=== PATIENT | male | born 1955 | race Caucasian/White ===

== ENCOUNTER 2019-11-07 16:07 | Outpatient (CLI) | payer OTHER, SELFPAY ==
[2019-11-07 16:58] LABS: Hemoglobin A1C 6.2 % (<5.7)
[2019-11-07 17:09] LABS: Alanine Aminotransferase 22 U/L (4-50); Albumin Level 3.9 g/dL (3.5-5.1); Alkaline Phosphatase 105 U/L (38-126); Aspartate Amino Transferase 22 U/L (17-59); Bilirubin,Total 1.9 mg/dL (0.2-1.3); Blood Urea Nitrogen 9 mg/dL (9-20); Calcium 8.5 mg/dL (8.4-10.2); Carbon Dioxide 34 mmol/L (22-30); Chloride 96 mmol/L (98-107); Cholesterol 153 mg/dL (0-200); Estimated Glomerular Filt Rate > 60; Glucose 100 mg/dL (75-110); HDL Direct 39 mg/dL; Potassium 3.4 mmol/L (3.4-5.0); Sodium 137 mmol/L (137-145); Triglycerides 83 mg/dL (<150)
[2019-11-07 17:20] LABS: LDL Cholesterol Direct 89 mg/dL
== END 2019-11-07 16:08 | disposition home or self-care (01) ==
LOC: ANHLAB 16:08
PROVIDERS: PCP Emergency Medicine; Visit Provider Emergency Medicine
DX: E10.65 Type 1 diabetes mellitus with hyperglycemia (principal); I10 Essential (primary) hypertension
CPT/HCPCS: 36415; 80053; 80061; 83036

== ENCOUNTER 2020-02-08 16:31 | Outpatient (CLI) | payer OTHER, SELFPAY ==
[2020-02-08 17:16] LABS: Hemoglobin A1C 6.7 % (<5.7)
[2020-02-08 17:20] LABS: Alanine Aminotransferase 22 U/L (4-50); Albumin Level 3.9 g/dL (3.5-5.1); Alkaline Phosphatase 100 U/L (38-126); Aspartate Amino Transferase 29 U/L (17-59); Bilirubin,Total 1.4 mg/dL (0.2-1.3); Blood Urea Nitrogen 12 mg/dL (9-20); Carbon Dioxide 32 mmol/L (22-30); Chloride 102 mmol/L (98-107); Cholesterol 179 mg/dL (0-200); Estimated Glomerular Filt Rate > 60; Glucose 98 mg/dL (75-110); HDL Direct 39 mg/dL; Potassium 3.3 mmol/L (3.4-5.0); Sodium 141 mmol/L (137-145); Triglycerides 104 mg/dL (<150)
[2020-02-08 17:31] LABS: LDL Cholesterol Direct 95 mg/dL
== END 2020-02-08 16:32 | disposition home or self-care (01) ==
PROVIDERS: PCP Emergency Medicine; Visit Provider Emergency Medicine
DX: E78.5 Hyperlipidemia, unspecified (principal); E11.9 Type 2 diabetes mellitus without complications
CPT/HCPCS: 36415; 80053; 80061; 83036

== ENCOUNTER 2020-05-17 09:27 | Outpatient (CLI) | payer SELFPAY ==
[2020-05-17 10:35] LABS: Hemoglobin A1C 6.5 % (<5.7)
[2020-05-17 10:46] LABS: Alanine Aminotransferase 18 U/L (4-50); Albumin Level 3.8 g/dL (3.5-5.1); Alkaline Phosphatase 94 U/L (38-126); Anion Gap 7.6 mmol/L (7-16); Aspartate Amino Transferase 21 U/L (17-59); Blood Urea Nitrogen 16 mg/dL (9-20); Calcium 8.4 mg/dL (8.4-10.2); Carbon Dioxide 33 mmol/L (22-30); Chloride 103 mmol/L (98-107); Estimated Glomerular Filt Rate > 60; Glucose 122 mg/dL (75-110); Potassium 3.6 mmol/L (3.4-5.0); Sodium 140 mmol/L (137-145)
[2020-05-17 11:14] LABS: Prostate Specific Antigen 0.3 ng/mL (< OR = 4.0)
== END 2020-05-17 09:28 | disposition home or self-care (01) ==
PROVIDERS: PCP Emergency Medicine; Visit Provider Emergency Medicine
DX: E11.9 Type 2 diabetes mellitus without complications (principal); E78.5 Hyperlipidemia, unspecified; Z12.5 Encounter for screening for malignant neoplasm of prostate
CPT/HCPCS: 36415; 80053; 83036; 84153

== ENCOUNTER 2021-07-17 06:55 | Outpatient (CLI) | payer MEDICARE, OTHER, SELFPAY ==
[2021-07-17 07:43] LABS: Alanine Aminotransferase 17 U/L (4-50); Albumin Level 4.1 g/dL (3.5-5.1); Alkaline Phosphatase 91 U/L (38-126); Anion Gap 7 mmol/L (8-16); Aspartate Amino Transferase 25 U/L (17-59); Bilirubin,Total 1.5 mg/dL (0.2-1.3); Blood Urea Nitrogen 15 mg/dL (9-20); Calcium 8.3 mg/dL (8.4-10.2); Carbon Dioxide 32 mmol/L (22-30); Chloride 102 mmol/L (98-107); Cholesterol 146 mg/dL (0-200); Estimated Glomerular Filt Rate > 60; Glucose 145 mg/dL (65-110); HDL Direct 35 mg/dL; Potassium 4.3 mmol/L (3.4-5.0); Sodium 141 mmol/L (137-145); Triglycerides 100 mg/dL (<150)
[2021-07-17 07:52] LABS: Hemoglobin A1C 8.3 % (<5.7)
[2021-07-17 07:53] LABS: LDL Cholesterol Direct 81 mg/dL
[2021-07-17 08:11] LABS: Prostate Specific Antigen 0.3 ng/mL (< OR = 4.0)
== END 2021-07-17 06:56 | disposition home or self-care (01) ==
PROVIDERS: PCP Emergency Medicine; Visit Provider Emergency Medicine
DX: Z12.5 Encounter for screening for malignant neoplasm of prostate (principal); E10.65 Type 1 diabetes mellitus with hyperglycemia; I10 Essential (primary) hypertension
CPT/HCPCS: 36415; 80053; 80061; 83036; 84153; G0103

== ENCOUNTER 2021-07-17 09:51 | Outpatient (CLI) | payer MEDICARE, OTHER, SELFPAY ==
--- NOTE | ~2021-07-17 | CT_ITS ---
EXAMINATION: CT lung screening DATE: 07/17/2021 10:10 INDICATION: Z87.891 - Personal history of nicotine dependence TECHNIQUE: Computed tomography (CT) of the chest was performed without intravenous contrast. Addition al 3D reconstructions utilizing coronal maximum intensity projection (MIP) were performed. Automated exposure control and iterative reconstruction technique were employed. The dose-length product was 42 7.29 mGy-cm. COMPARISON: None FINDINGS: Linear bands of discoid atelectasis/scarring in the bilateral lower lobes with some associated estela ectural distortion at the left lower lobe. Additional atelectasis along the periphery of the anteroin ferior inferomedial aspect of the right middle lobe. Mild emphysema. No other suspicious pulmonary no dules, pneumonia, pulmonary edema or pleural effusion. Heart size is normal. Minimal scattered athero sclerotic coronary artery calcification. No pericardial effusion. Thoracic aorta is normal in caliber . No pathologically enlarged thoracic lymphadenopathy. There is some eventration along the right kathy diaphragm. The visualized upper abdomen is unremarkable. Mild thoracic dextroscoliosis with mild to m oderate spondylosis. IMPRESSION: 1. Lung-RADS category 2: Benign appearance or behavior. Continue annual screening with noncontrast lo w-dose chest CT in 12 months. 2. Mild emphysema with atelectasis/scarring in the bilateral lower lung zones. Reviewed, dictated and finalized at location B. IMPRESSION: 1. Lung-RADS category 2: Benign appearance or behavior. Continue annual screeni ng with noncontrast low-dose chest CT in 12 months. 2. Mild emphysema with atelectasis/scarring in the bilateral lower lung zones.
== END 2021-07-17 09:52 | disposition home or self-care (01) ==
LOC: ANHIMG 09:55
PROVIDERS: PCP Emergency Medicine; Visit Provider Nurse Practitioner Family
DX: Z12.2 Encounter for screening for malignant neoplasm of respiratory organs (principal); Z87.891 Personal history of nicotine dependence
CPT/HCPCS: 36415; 71271; 80053; 80061; 83036; 84153; G0103

== ENCOUNTER 2021-10-23 07:04 | Outpatient (CLI) | payer MEDICARE, SELFPAY ==
[2021-10-23 08:38] LABS: Alanine Aminotransferase 15 U/L (4-50); Albumin Level 3.9 g/dL (3.5-5.1); Alkaline Phosphatase 105 U/L (38-126); Anion Gap 7 mmol/L (8-16); Aspartate Amino Transferase 20 U/L (17-59); Bilirubin,Total 0.9 mg/dL (0.2-1.3); Blood Urea Nitrogen 20 mg/dL (9-20); Calcium 8.5 mg/dL (8.4-10.2); Carbon Dioxide 32 mmol/L (22-30); Chloride 101 mmol/L (98-107); Cholesterol 174 mg/dL (0-200); Estimated Glomerular Filt Rate > 60; Glucose 185 mg/dL (65-110); HDL Direct 33 mg/dL; Sodium 140 mmol/L (137-145); Triglycerides 142 mg/dL (<150)
[2021-10-23 08:49] LABS: LDL Cholesterol Direct 91 mg/dL
[2021-10-23 08:56] LABS: Hemoglobin A1C 10.3 % (<5.7)
[2021-10-23 10:15] LABS: Creatinine Urine 103.2 mg/dL
[2021-10-23 10:20] LABS: MALB Creatinine Ratio 20.2 mg/g (0-30); Microalbumin Urine Random 20.8 mg/L (0-16.7)
== END 2021-10-23 07:05 | disposition home or self-care (01) ==
LOC: ANHLAB 07:08
PROVIDERS: PCP Emergency Medicine; Visit Provider Emergency Medicine
DX: E10.65 Type 1 diabetes mellitus with hyperglycemia (principal); I10 Essential (primary) hypertension
CPT/HCPCS: 36415; 80053; 80061; 82043; 83036

== ENCOUNTER 2021-12-27 08:06 | Outpatient (CLI) | payer MEDICARE, SELFPAY ==
[2021-12-27 08:40] VITALS: PULSE 66; O2SAT 93
[2021-12-27 08:44] VITALS: PULSE 94; O2SAT 85
[2021-12-27 08:45] VITALS: PULSE 89; O2SAT 92
[2021-12-27 08:55] VITALS: PULSE 70; O2SAT 93
--- NOTE | 2021-12-27 11:28 | HOMEO2EVAL ---
Evaluation was performed at [facility] Home Oxygen Evaluation RC: Home Oxygen (O2) Evaluation Start: 12/27/21 11:21 Freq: Status: Active Protocol: RPE Activity Type Activity Date Activity User E-Sign Co-Sign Detail Recorded Client Recorded Date Recorded By Document 12/27/21 08:40 PK [email or web address] 12/27/21 11:25 PK Document 12/27/21 08:44 PK [email or web address] 12/27/21 11:25 PK Document 12/27/21 08:45 PK [email or web address] 12/27/21 11:25 [facility] Document 12/27/21 08:55 PK [email or web address] 12/27/21 11:25 [facility] 12/27/21 12/27/21 12/27/21 08:40 08:44 08:45 Home O2 Evaluation Test Phase Resting Exercise Exercise Oxygen Delivery Room Air Room Air Nasal Cannula Oxygen Flow Rate (L/min) 1 Pulse Oximetry (90-100 %) 93 85 L 92 Pulse Rate (60-100 beats/min) 66 94 89 Ambulation Distance (feet) 300 Ambulation Distance (meters) 91.43 Home Oxygen Evaluation Comments Treatment Charges O2 Evaluation - Outpatient 12/27/21 08:55 Home O2 Evaluation Test Phase Resting Oxygen Delivery Room Air Oxygen Flow Rate (L/min) Pulse Oximetry (90-100 %) 93 Pulse Rate (60-100 beats/min) 70 Ambulation Distance (feet) Ambulation Distance (meters) Home Oxygen Evaluation Comments PATIENT REQUIRES 1 LITER WITH ACTIVITY AND NO OXYGEN AT REST . Treatment Charges
--- NOTE | 2021-12-27 11:35 | HOMEO2EVAL ---
Evaluation was performed at [facility] Home Oxygen Evaluation RC: Home Oxygen (O2) Evaluation Start: 12/27/21 11:21 Freq: Status: Active Protocol: RPE Activity Type Activity Date Activity User E-Sign Co-Sign Detail Recorded Client Recorded Date Recorded By Document 12/27/21 08:40 PK [email or web address] 12/27/21 11:25 PK Document 12/27/21 08:44 PK [email or web address] 12/27/21 11:25 PK Document 12/27/21 08:45 PK [email or web address] 12/27/21 11:25 [facility] Document 12/27/21 08:55 PK [email or web address] 12/27/21 11:25 [facility] 12/27/21 12/27/21 12/27/21 08:40 08:44 08:45 Home O2 Evaluation Test Phase Resting Exercise Exercise Oxygen Delivery Room Air Room Air Nasal Cannula Oxygen Flow Rate (L/min) 1 Pulse Oximetry (90-100 %) 93 85 L 92 Pulse Rate (60-100 beats/min) 66 94 89 Ambulation Distance (feet) 300 Ambulation Distance (meters) 91.43 Home Oxygen Evaluation Comments Treatment Charges O2 Evaluation - Outpatient 12/27/21 08:55 Home O2 Evaluation Test Phase Resting Oxygen Delivery Room Air Oxygen Flow Rate (L/min) Pulse Oximetry (90-100 %) 93 Pulse Rate (60-100 beats/min) 70 Ambulation Distance (feet) Ambulation Distance (meters) Home Oxygen Evaluation Comments PATIENT REQUIRES 1 LITER WITH ACTIVITY AND NO OXYGEN AT REST . Treatment Charges
== END 2021-12-27 08:07 | disposition home or self-care (01) ==
LOC: ANHPFT 08:08
PROVIDERS: PCP Emergency Medicine; Visit Provider Nurse Practitioner Family
DX: R06.02 Shortness of breath (principal)
CPT/HCPCS: 94618

== ENCOUNTER 2022-01-07 06:39 | Outpatient (CLI) | payer MEDICARE, SELFPAY ==
[2022-01-07 07:37] LABS: Alanine Aminotransferase 18 U/L (4-50); Alkaline Phosphatase 87 U/L (38-126); Anion Gap 8 mmol/L (8-16); Aspartate Amino Transferase 23 U/L (17-59); Bilirubin,Total 1.2 mg/dL (0.2-1.3); Blood Urea Nitrogen 14 mg/dL (9-20); Calcium 8.3 mg/dL (8.4-10.2); Carbon Dioxide 28 mmol/L (22-30); Chloride 104 mmol/L (98-107); Cholesterol 148 mg/dL (0-200); Estimated Glomerular Filt Rate > 60; Glucose 115 mg/dL (65-110); HDL Direct 33 mg/dL; Potassium 3.6 mmol/L (3.4-5.0); Sodium 140 mmol/L (137-145); Triglycerides 106 mg/dL (<150)
[2022-01-07 07:39] LABS: Hemoglobin A1C 7.1 % (<5.7)
[2022-01-07 07:47] LABS: LDL Cholesterol Direct 69 mg/dL
[2022-01-07 07:59] LABS: MALB Creatinine Ratio 24.4 mg/g (0-30); Microalbumin Urine Random 28.6 mg/L (0-16.7)
== END 2022-01-07 06:40 | disposition home or self-care (01) ==
LOC: ANHLAB 06:43
PROVIDERS: PCP Emergency Medicine; Visit Provider Emergency Medicine
DX: E10.65 Type 1 diabetes mellitus with hyperglycemia (principal); I10 Essential (primary) hypertension
CPT/HCPCS: 36415; 80053; 80061; 82043; 83036

== ENCOUNTER 2022-02-13 00:32 | Day surgery (SDC) | payer MEDICARE, SELFPAY ==
[2022-02-06 10:47] VITALS: BMI 38.4
[2022-02-13 08:44] VITALS: BP 156/68; PULSE 63; RESP 20; TEMP 36.4; O2SAT 95
--- NOTE | 2022-02-13 08:48 | WPDGICN ---
Assessment and Plan Assessment and plan (1) History of colon polyps: Code(s): Z86.010 - Personal history of colonic polyps Status: Acute Assessment and Plan: Patient has a prior history of colon polyps. For this reason surveillance colonoscopy is advised now and that several year intervals in the future. Further recommendations will be given after colonoscopy. GI Consult Note Consult date/time: 02/13/22 08:48 HPI: Sundeep Orellana is a 66 year old male Presents for screening colonoscopy. Patient has a history of polyps in the colon in 2019. And 2016. Patient presents today for follow-up screening colonoscopy. He states his weight appetite and bowel movements are normal. On 1 occasion several weeks ago to notice bright red blood per rectum with wiping. His bowel habits in general a been very normal with no abdominal or rectal pain. Family history is noncontributory. Patient presents today for neoplasia screening. Review of Systems Review of Systems: All systems reviewed & are unremarkable except as noted in HPI and below PMFSH Past Medical History Medical History COPD (chronic obstructive pulmonary disease) COPD (chronic obstructive pulmonary disease) Dyspnea on exertion Hyperglycemia due to type 1 diabetes mellitus Hypertension Surgical History Surgical History H/O hernia repair History of cataract surgery Family History Family History Mother Hypertension Family history of congestive heart failure Other Cerebrovascular accident Social History Social History Smoking status: Former smoker Tobacco type: cigarettes Smoking end date: 10/12/19 Alcohol intake: former Substance use: former Substance use type: former substance user and marijuana Living arrangements: alone Spiritual care concerns: No Meds Home Medications and Allergies Home Medications Medication Instructions Recorded Confirmed Type albuterol sulfate 90 mcg/actuation 2 puff INHALATION Q4-6H PRN #8.5 gm 06/26/21 02/06/22 Rx aerosol inhaler furosemide 20 mg tablet 20 mg PO DAILY #90 tablet 09/03/21 02/06/22 Rx losartan 100 mg tablet 100 mg PO DAILY #90 tablet 09/03/21 02/06/22 Rx potassium chloride 10 mEq 10 meq PO DAILY #90 tablet 09/03/21 02/06/22 Rx tablet,extended release(part/cryst) albuterol sulfate 2.5 mg INHALATION QID PRN 180 Days 09/25/21 02/06/22 Rx #2160 ml budesonide 160 mcg-glycopyr 9 2 inh INHALATION QAM AND QPM #10.7 09/25/21 02/06/22 Rx mcg-formot 4.8 mcg/actuation HFA g inhaler amlodipine 10 mg tablet 10 mg PO DAILY #90 tablet 10/15/21 02/06/22 Rx metformin 1,000 mg tablet 1,000 mg PO BID #180 tablet 12/09/21 02/06/22 Rx Allergies Allergy/AdvReac Type Severity Reaction Status Date / Time No Known Allergies Allergy Verified 02/13/22 08:42 Vital Signs Vital Signs - 24 hr 02/13/22 08:44 Temperature 97.5 F L Pulse Rate 63 Respiratory Rate 20 Blood Pressure 156/68 H Pulse Oximetry 95 Exam Narrative: Physical exam reveals patient to be alert. Vital signs stable. HEENT exam is unremarkable. Patient is anicteric. Lungs are clear to auscultation and percussion. Heart is without murmur or extra sounds. Abdominal exam bowel sounds are present soft nontender with no organomegaly. Digital external rectal exam is normal.
[2022-02-13] MEDS: LACTATED RINGERS 1,000 ML 150 ML IV CONT (08:55)
--- NOTE | 2022-02-13 08:57 | WPDANESEPPF ---
Anes - Initial Pre Proc Eval Procedure: Operation Date: 02/13/22 10:00 Proposed Procedures p Screening Colonoscopy - Cornell Raymond MD Date/Time: 02/13/22 08:57 Surgeon: Cornell Raymond MD Pre Op Diagnosis: hx of colon polyps Patient Data Age: 66 Gender: M Height: 1.8 m Weight: 123.2 kg Last Vital Signs Temp 36.4 C L 02/13/22 08:44 Pulse 63 02/13/22 08:44 Resp 20 02/13/22 08:44 BP 156/68 H 02/13/22 08:44 Pulse Ox 95 02/13/22 08:44 Allergies Allergy/AdvReac Type Severity Reaction Status Date / Time No Known Allergies Allergy Verified 02/13/22 08:42 Home Medications Medication Instructions Recorded Confirmed Type albuterol sulfate 90 mcg/actuation 2 puff INHALATION Q4-6H PRN #8.5 gm 06/26/21 02/06/22 Rx aerosol inhaler furosemide 20 mg tablet 20 mg PO DAILY #90 tablet 09/03/21 02/06/22 Rx losartan 100 mg tablet 100 mg PO DAILY #90 tablet 09/03/21 02/06/22 Rx potassium chloride 10 mEq 10 meq PO DAILY #90 tablet 09/03/21 02/06/22 Rx tablet,extended release(part/cryst) albuterol sulfate 2.5 mg INHALATION QID PRN 180 Days 09/25/21 02/06/22 Rx #2160 ml budesonide 160 mcg-glycopyr 9 2 inh INHALATION QAM AND QPM #10.7 09/25/21 02/06/22 Rx mcg-formot 4.8 mcg/actuation HFA g inhaler amlodipine 10 mg tablet 10 mg PO DAILY #90 tablet 10/15/21 02/06/22 Rx metformin 1,000 mg tablet 1,000 mg PO BID #180 tablet 12/09/21 02/06/22 Rx Patient hx anesthesia problems: none Family hx anesthesia problems: other (sz) Results Review: All pre-operative results and documents have been reviewed as part of the pre-operative evaluation. [facility] Past Medical History Medical History COPD (chronic obstructive pulmonary disease) COPD (chronic obstructive pulmonary disease) Diabetes mellitus Dyspnea on exertion History of tobacco abuse Hyperglycemia due to type 1 diabetes mellitus Hypertension Marijuana smoker PEACE (obstructive sleep apnea) Surgical History Surgical History H/O hernia repair History of cataract surgery Family History Family History Mother Hypertension Family history of congestive heart failure Other Cerebrovascular accident Social History Social History Smoking status: Former smoker Tobacco type: cigarettes Smoking end date: 10/12/19 Alcohol intake: former Substance use: former Substance use type: former substance user and marijuana Living arrangements: alone Spiritual care concerns: No Anes - Eval Final PreProcedure Day of Procedure 02/13/22 08:57 Patient weight: obese Heart: regular rate and rhythm Lungs: decreased breath sounds Airway: Mallampati scale class II Neurological: alert and oriented Last oral intake: >/= 8 hours ASA classification: III Emergent: no Anesthetic plan: proceed Anesthesia type and monitoring: general GIVS and standard monitoring Results Review: All pre-operative results and documents have been reviewed as part of the pre-operative evaluation. Informed Consent: The patient's anesthetic plan and its attendant risks and benefits were discussed with the patient/family/POA. Questions were solicited and answers provided to the satisfaction of the patient/family/POA.
[2022-02-13 09:45] VITALS: BP 96/57; PULSE 61; RESP 25; O2SAT 92
[2022-02-13 09:55] VITALS: BP 110/57; PULSE 54; RESP 19; O2SAT 93
[2022-02-13 10:05] VITALS: BP 134/67; PULSE 54; RESP 18; O2SAT 93
[2022-02-13 11:29] LABS: Glucose Point of Care 89 mg/dl (65-105)
== END 2022-02-13 10:15 | disposition home or self-care (01) ==
PROVIDERS: PCP Emergency Medicine; Visit Provider Internal Medicine Gastroenterology
PROC: 0DJD8ZZ Inspection of Lower Intestinal Tract, Via Natural or Artificial Opening Endoscopic (ICD-10-PCS; CPT 45378; principal; 2022-02-13 10:00)
DX: Z12.11 Encounter for screening for malignant neoplasm of colon (principal); D12.2 Benign neoplasm of ascending colon; D12.5 Benign neoplasm of sigmoid colon; D12.3 Benign neoplasm of transverse colon; K63.5 Polyp of colon; K57.30 Diverticulosis of large intestine without perforation or abscess without bleeding; K64.8 Other hemorrhoids; J44.9 Chronic obstructive pulmonary disease, unspecified; I10 Essential (primary) hypertension; E11.9 Type 2 diabetes mellitus without complications; Z87.891 Personal history of nicotine dependence
CPT/HCPCS: 45385; 82948; 88305; J2704; J7120

== ENCOUNTER 2022-03-26 09:05 | Outpatient (CLI) | payer MEDICARE, SELFPAY ==
[2022-03-26 10:08] LABS: Alanine Aminotransferase 14 U/L (6-50); Albumin Level 3.9 g/dL (3.5-5.1); Alkaline Phosphatase 96 U/L (38-126); Anion Gap 7 mmol/L (8-16); Aspartate Amino Transferase 19 U/L (17-59); Bilirubin,Total 0.8 mg/dL (0.2-1.3); Blood Urea Nitrogen 17 mg/dL (9-20); Calcium 8.4 mg/dL (8.4-10.2); Carbon Dioxide 29 mmol/L (22-30); Chloride 103 mmol/L (98-107); Cholesterol 155 mg/dL (0-200); Estimated Glomerular Filt Rate > 60; Glucose 107 mg/dL (65-110); HDL Direct 34 mg/dL; Potassium 3.9 mmol/L (3.4-5.0); Sodium 139 mmol/L (137-145); Triglycerides 141 mg/dL (<150)
[2022-03-26 10:19] LABS: LDL Cholesterol Direct 76 mg/dL
[2022-03-26 10:38] LABS: Hemoglobin A1C 6.2 % (<5.7)
== END 2022-03-26 09:06 | disposition home or self-care (01) ==
LOC: ANHLAB 09:08
PROVIDERS: PCP Emergency Medicine; Visit Provider Emergency Medicine
DX: E11.9 Type 2 diabetes mellitus without complications (principal); I10 Essential (primary) hypertension
CPT/HCPCS: 36415; 80053; 80061; 83036

== ENCOUNTER 2022-07-18 07:41 | Outpatient (CLI) | payer MEDICARE, SELFPAY ==
--- NOTE | ~2022-07-18 | CT_ITS ---
EXAMINATION:CT lung screening DATE: 07/18/2022 08:05 INDICATION: Personal history of tobacco dependence. Smoker who quit 2 years ago with 30 pack year his tory. TECHNIQUE: Computed tomography (CT) of the chest was performed without intravenous contrast. Automate d exposure control and iterative reconstruction technique were employed. The dose-length product (DLP ) was 354.67 mGy-cm. COMPARISON: Chest CT 07/17/2021 FINDINGS: There is mild emphysema. There is a stable 3 mm nodule in right upper lobe. There is stable mild scarring at the lung apices. There is mild atelectasis in the inferior lungs. Calcified bilater al lung nodules and calcified left hilar lymph nodes are consistent with old granulomatous disease. T here is a 2 mm nodule in left upper lobe. No pleural effusion. The heart size is normal. No pericardi al effusion. There is thoracic dextroscoliosis and mild spondylosis. There is mild chronic anterior w edging of multiple vertebral bodies. IMPRESSION: 1. Lung-RADS category 2: Benign appearance or behavior. Continue annual screening with noncontrast lo w-dose chest CT in 12 months. Reviewed, dictated and finalized at location D. IMPRESSION: 1. Lung-RADS category 2: Benign appearance or behavior. Continue annual screeni ng with noncontrast low-dose chest CT in 12 months.
== END 2022-07-18 07:42 | disposition home or self-care (01) ==
PROVIDERS: PCP Emergency Medicine; Visit Provider Nurse Practitioner Family
DX: Z12.2 Encounter for screening for malignant neoplasm of respiratory organs (principal); Z87.891 Personal history of nicotine dependence
CPT/HCPCS: 71271

== ENCOUNTER 2022-07-30 13:53 | Outpatient (CLI) | payer MEDICARE, SELFPAY ==
[2022-07-30 14:34] LABS: Alanine Aminotransferase 18 U/L (6-50); Albumin Level 4.1 g/dL (3.5-5.1); Alkaline Phosphatase 84 U/L (38-126); Anion Gap 9 mmol/L (8-16); Aspartate Amino Transferase 18 U/L (17-59); Bilirubin,Total 0.5 mg/dL (0.2-1.3); Blood Urea Nitrogen 17 mg/dL (9-20); Calcium 8.3 mg/dL (8.4-10.2); Carbon Dioxide 30 mmol/L (22-30); Chloride 101 mmol/L (98-107); Cholesterol 157 mg/dL (0-200); Estimated Glomerular Filt Rate > 60; Glucose 133 mg/dL (65-110); HDL Direct 37 mg/dL; Potassium 3.9 mmol/L (3.4-5.0); Sodium 140 mmol/L (137-145); Triglycerides 172 mg/dL (<150)
[2022-07-30 14:45] LABS: LDL Cholesterol Direct 77 mg/dL
== END 2022-07-30 13:54 | disposition home or self-care (01) ==
LOC: ANHLAB 13:53
PROVIDERS: PCP Emergency Medicine; Visit Provider Emergency Medicine
DX: I10 Essential (primary) hypertension (principal)
CPT/HCPCS: 36415; 80053; 80061

== ENCOUNTER 2022-08-15 09:51 | Outpatient (CLI) | payer MEDICARE, SELFPAY ==
[2022-08-15 11:13] LABS: Prostate Specific Antigen 0.3 ng/mL (< OR = 4.0)
[2022-08-15 11:36] LABS: Hemoglobin A1C 6.7 % (<5.7)
== END 2022-08-15 09:52 | disposition home or self-care (01) ==
PROVIDERS: PCP Emergency Medicine; Visit Provider Emergency Medicine
DX: E11.9 Type 2 diabetes mellitus without complications (principal); I10 Essential (primary) hypertension; Z12.5 Encounter for screening for malignant neoplasm of prostate
CPT/HCPCS: 36415; 83036; 84153; G0103

== ENCOUNTER 2022-10-15 08:06 | Outpatient (CLI) | payer MEDICARE, SELFPAY ==
--- NOTE | ~2022-10-15 | NM_ITS ---
EXAMINATION: NM luisito stress w perfusion DATE: 10/15/2022 12:50 INDICATION: Dyspnea. Abnormal electrocardiogram. TECHNIQUE: Rest images were obtained following intravenous administration of 10 mCi Tc99m tetrofosmin (Myoview). The patient was infused intravenously with Lexiscan (regadenoson). Then, 32.1 mCi Tc99m t etrofosmin (Myoview) was administered intravenously, and stress images were obtained. Data was recons tructed into short axis and horizontal and vertical long axis SPECT images. Gated SPECT images were a lso obtained. COMPARISON: Myocardial perfusion imaging 06/14/2019, chest CT 07/18/22 FINDINGS: There is a large, mild, fixed perfusion defect involving left ventricular apex, the apical segments, and inferior wall, consistent with infarct. No reversible component to suggest ischemia. Th ere is no segmental wall motion abnormality. Left ventricular ejection fraction measures 70%. IMPRESSION: 1. 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 2. Normal left ventricular ejection fraction measuring 70%. Reviewed, dictated and finalized at location A. DESK SUPPORT IMPRESSION: 1. Large area of mild infarct involving left ventricle apex, the apical segment s, and inferior wall. 2. Normal left ventricular ejection fraction measuring 70%.
--- NOTE | 2022-10-15 08:26 | EST_ITS ---
Patient Info Name: Sundeep Orellana Age: 67 years : 1955 Gender: Male Ht: 72 in Wt: 290 lbs BSA: 2.64 m2 HR: 53 bpm BP: 150 / 78 mmHg Heart Rhythm: Sinus Rhythm Exam Date: 10/15/2022 9:17 AM Exam Location: [facility] Stress Patient Status: Outpatient Admit Date: 10/15/2022 Staff Ordering Physician: Harvinder Gilbert APRN Attending Provider: Harvinder Gilbert APRN Exercise Technologist: Angelina Clark CT Exercise Physician: Orlando Ivy DO Exam Type: CA stress luisito w NM Study Info Indications R06.00 - Dyspnea, unspecified A regadenoson stress test was performed. Summary 1. 1. Negative lexiscan stress test for ischemic ST changes by ECG criteria. 2. 2. Baseline hypertension. 3. 3. Nuclear scan to follow and will be reported separately. Please correlate with it. 4. 4. Patient informed of the above results. Protocol: Lexiscan Stress ECG Details Stage: REST Duration (min): 1 min : 29 sec HR (bpm): 55 SBP (mmHg): 150 DBP (mmHg): 78 Stage: REST Duration (min): 4 min : 49 sec HR (bpm): 54 SBP (mmHg): 150 DBP (mmHg): 78 Stage: STAGE 1 Duration (min): 0 min : 59 sec HR (bpm): 77 SBP (mmHg): 150 DBP (mmHg): 78 Stage: RECOVERY Duration (min): 1 min : 0 sec HR (bpm): 72 SBP (mmHg): 173 DBP (mmHg): 76 Stage: RECOVERY Duration (min): 2 min : 0 sec HR (bpm): 71 SBP (mmHg): 173 DBP (mmHg): 76 Stage: RECOVERY Duration (min): 3 min : 0 sec HR (bpm): 66 SBP (mmHg): 173 DBP (mmHg): 76 Stage: RECOVERY Duration (min): 3 min : 32 sec HR (bpm): 67 SBP (mmHg): 162 DBP (mmHg): 75 Rest HR: 54 bpm Peak HR: 77 bpm Rest Sys BP: 150 mmHg Peak Sys BP: 173 mmHg Max Pred HR: 154 bpm % Max Pred HR: 50 % Target HR: 131 bpm Max RPP: 13,321 bpm*mmHg Termination Reason: Completed protocol Cardiac Symptoms: Shortness of breath Total Time: 1 min : 0 sec Rest Faith BP: 78 mmHg Peak Faith BP: 76 mmHg Total Dose: 0.4 mg Resting ECG Sinus rhythm. Stress ECG No ST changes. Arrhythmias None. Report Signatures
== END 2022-10-15 08:07 | disposition home or self-care (01) ==
PROVIDERS: PCP Emergency Medicine; Visit Provider Nurse Practitioner Family
DX: R06.09 Other forms of dyspnea (principal)
CPT/HCPCS: 78452; 93017; A9502; J2785

== ENCOUNTER 2022-10-16 08:08 | Outpatient (CLI) | payer MEDICARE, SELFPAY ==
[2022-10-16 08:30] VITALS: PULSE 63; O2SAT 94
[2022-10-16 08:33] VITALS: PULSE 95; O2SAT 87
[2022-10-16 08:34] VITALS: O2SAT 88
[2022-10-16 08:35] VITALS: PULSE 98; O2SAT 93
[2022-10-16 08:43] VITALS: PULSE 72; O2SAT 93
--- NOTE | 2022-10-16 08:45 | PCRCNOTE ---
Home O2 evaluation faxed to doctors office. Pt requesting portable O2 concentrator. DME company is [employer]
--- NOTE | 2022-10-16 08:48 | HOMEO2EVAL ---
Evaluation was performed at [facility] Home Oxygen Evaluation RC: Home Oxygen (O2) Evaluation Start: 10/16/22 08:39 Freq: Status: Active Protocol: RPE Activity Type Activity Date Activity User E-sign Co-sign Detail Recorded Client Recorded Date Recorded By Document 10/16/22 08:30 YORDY [email or web address] 10/16/22 08:44 YORDY Document 10/16/22 08:33 YORDY [email or web address] 10/16/22 08:44 YORDY Document 10/16/22 08:34 YORDY [email or web address] 10/16/22 08:44 YORDY Document 10/16/22 08:35 YORDY [email or web address] 10/16/22 08:44 YORDY Document 10/16/22 08:43 YORDY [email or web address] 10/16/22 08:44 YORDY 10/16/22 10/16/22 10/16/22 08:30 08:33 08:34 Home O2 Evaluation [Oxygen] -Test Phase Resting Exercise Exercise -Oxygen Delivery Room Air Room Air Nasal Cannula -Oxygen Flow Rate (L/min) 1 [Pulse Oximetry] -Pulse Oximetry (90-100 %) 94 87 L 88 L [Pulse Rate] -Pulse Rate (60-100 beats/min) 63 95 [Exercise] -Ambulation Distance (feet) -Ambulation Distance (meters) [Comments] -Home Oxygen Evaluation Comments [Charges] -Treatment Charges O2 Evaluation - Outpatient 10/16/22 10/16/22 08:35 08:43 Home O2 Evaluation [Oxygen] -Test Phase Exercise Resting -Oxygen Delivery Nasal Cannula Room Air -Oxygen Flow Rate (L/min) 2 [Pulse Oximetry] -Pulse Oximetry (90-100 %) 93 93 [Pulse Rate] -Pulse Rate (60-100 beats/min) 98 72 [Exercise] -Ambulation Distance (feet) 500 -Ambulation Distance (meters) 152.39 [Comments] -Home Oxygen Evaluation Comments Patient requires 2 liters O2 with ambulation [Charges] -Treatment Charges
== END 2022-10-16 08:09 | disposition home or self-care (01) ==
PROVIDERS: PCP Emergency Medicine; Visit Provider Nurse Practitioner Family
DX: R06.02 Shortness of breath (principal); Z99.81 Dependence on supplemental oxygen
CPT/HCPCS: 94618

== ENCOUNTER 2022-11-11 00:41 | Day surgery (SDC) | payer MEDICARE, SELFPAY ==
[2022-11-10 13:50] VITALS: BMI 40.0
[2022-11-11] VITALS (11 sets, daily range): BP systolic 142–162; BP diastolic 61–84; PULSE 57–68; RESP 14–19; TEMP 36.6–37.3; O2SAT 94–98; BMI 38.6
[2022-11-11 07:42] LABS: Basophils Absolute Auto 0.1 K/mm3 (0.0-0.1); Basophils Percent Auto 0.7 % (0.2-1.2); Eosinophils Absolute Auto 0.3 K/mm3 (0-0.3); Eosinophils Percent Auto 2.9 % (0-4.4); Hematocrit 41.5 % (42.0-52.0); Immature Granulocyte Absolute 0.18 K/mm3 (0.00-0.031); Immature Granulocyte Percent A 1.8 % (0-0.5); Lymphocytes Absolute Auto 1.67 K/mm3 (0.9-3.2); Mean Corpuscular HGB Conc 33.7 g/dl (32-36); Mean Corpuscular Hemoglobin 30.9 pg (26-34); Mean Corpuscular Volume 91.6 fl (80-100); Monocytes Absolute Auto 0.6 K/mm3 (0.1-0.6); Monocytes Percent Auto 6.3 % (2.6-8.5); Neutrophils Percent Auto 71.3 % (45.5-73.1); Platelet Count Result 222 k/mm3 (150-375); Red Blood Count 4.53 M/mm3 (4.6-6.20); Red Cell Distribution Width 13.2 % (11.5-14.5); White Blood Count 9.8 K/mm3 (4.5-10.0)
[2022-11-11 07:52] LABS: Anion Gap 6 mmol/L (8-16); Blood Urea Nitrogen 23 mg/dL (9-20); Calcium 8.3 mg/dL (8.4-10.2); Carbon Dioxide 32 mmol/L (22-30); Chloride 103 mmol/L (98-107); Estimated CRCL calculation 110 ml/min; Estimated Glomerular Filt Rate > 60; Glucose 120 mg/dL (65-110); Potassium 3.9 mmol/L (3.4-5.0); Sodium 141 mmol/L (137-145)
--- NOTE | 2022-11-11 08:47 | WPDHPUPDATE1 ---
History and Physical Update Update Date/Time: 11/11/22 08:47 History and Physical has been reviewed, including an updated exam of the patient. There are NO changes in the patient's condition. Risks, benefits, and alternatives have been discussed and questions answered. Patient agrees to proceed with procedure.
--- NOTE | 2022-11-11 08:47 | WPDMODSED ---
Moderate Sedation Note-Pt Data Patient Data Diagnosis: Angina in the setting of abnormal stress test Present Complaint: Angina in the setting of abnormal stress test Procedure to be performed/Plan: Coronary angiography, LHC, +/- PCI Allergies Allergy/AdvReac Type Severity Reaction Status Date / Time No Known Allergies Allergy Verified 11/11/22 07:23 Home Medications Medication Instructions Recorded Confirmed Type budesonide 160 mcg-glycopyr 9 2 inh inhalation QAM AND QPM #10.7 09/25/21 11/10/22 Rx mcg-formot 4.8 mcg/actuation HFA grams inhaler ([employer]) metformin 1,000 mg tablet 1,000 mg PO BID #180 tabs 12/09/21 11/10/22 Rx losartan 100 mg tablet 100 mg PO DAILY #90 tabs 05/30/22 11/10/22 Rx amlodipine 10 mg tablet 10 mg PO DAILY #90 tabs 07/07/22 11/10/22 Rx temazepam 15 mg capsule 15 mg PO QHS PRN sleep #30 caps 08/06/22 11/10/22 Rx albuterol sulfate 2.5 mg/3 mL 2.5 mg (3 mL) inhalation QID PRN 09/19/22 11/10/22 Rx (0.083 %) solution for nebulization shortness of breath or wheezing 90 days #1,080 mL albuterol sulfate 90 mcg/actuation 2 puff inhalation Q4-6H PRN 09/19/22 11/10/22 Rx aerosol inhaler ([employer]Air HFA) shortness of breath or wheezing #8.5 grams aspirin 81 mg tablet,delayed 81 mg PO DAILY 10/30/22 11/10/22 History release furosemide 20 mg tablet 40 mg PO DAILY #90 tabs 10/30/22 11/10/22 Rx potassium chloride 10 mEq 20 meq PO DAILY #90 tabs 10/30/22 11/10/22 Rx tablet,extended release(part/cryst) Current Medications: Active Medications Sodium Chloride (Normal Saline Iv) 500 mls @ 100 mls/hr IV CONT .Q5H KARLIE Sedation/Anesthesia: No previous sedation/anesthesia problems (including family history). [facility] Past Medical History Medical History COPD (chronic obstructive pulmonary disease) COPD (chronic obstructive pulmonary disease) Diabetes mellitus Dyspnea on exertion History of tobacco abuse Hyperglycemia due to type 1 diabetes mellitus Hypertension Marijuana smoker PEACE (obstructive sleep apnea) Surgical History Surgical History H/O hernia repair History of cataract surgery Family History Family History Mother Hypertension Family history of congestive heart failure Other Cerebrovascular accident Social History Social History Smoking packs per day: 1.5 Smoking cigarettes per day: 30.0 Smoking status: Former smoker Tobacco type: cigarettes Smoking end date: 10/12/19 Alcohol intake: former Substance use: current Substance use type: marijuana Other substance usage details: quit smoking 6 months ago, takes edibles Lack of Transportation: No Lack of Food: Sometimes True Current Housing: I Have Housing Concerned About Future Housing: No Difficulty Paying Gas/Electric Bills: No Difficulty Paying for Meds: No Currently Unemployed: No Education: High School Diploma/GED Difficulty w/ Childcare or Family Care: No Living arrangements: alone Spiritual care concerns: No Mod Sed Physical Exam Physical Exam Pre Procedural Exam: Normal: Appearance, Lungs, Heart Rate, Heart Rhythm, Neuro Exam, Abdomen, Extremities and Skin Hours since solid foods: 10 Hours since liquid intake: 8 Mallampati Classification: class III Internal Medicine - PN: Obj Da Vital Signs Vital Signs: Vital Signs - 24 hr 11/11/22 07:25 Temperature 37.3 C Pulse Rate 68 Respiratory Rate 14 Blood Pressure 158/73 H Pulse Oximetry 94 Oxygen Delivery Room Air Meds/Results Medications: Active Medications Generic Name Dose Route Start Last Admin Trade Name Freq PRN Reason Stop Dose Admin Sodium Chloride 500 mls @ 100 mls/hr 11/11/22 07:00 Normal Saline Iv IV CONT .Q5H [facility] 11/11/22 07:21
--- NOTE | 2022-11-11 08:48 | WPDCARDPROC ---
Cardiac Cath Procedure Note Date of procedure:: 11/11/22 Performing physician:: CATHETERIZATION LABORATORY REPORT Procedure Date: 11/11/2022 Lighting Adviser: Luisito Parker M.D., [facility]? Referring Physician: Dr. Ivy ? Anesthesia: Versed and Fentanyl were ordered and given in my presence at 08:52, procedure ended at 09:18. Supervision of nurse monitored moderate sedation with Versed and Fentanyl was provided for 26 minutes. Total of Versed 2 mg and Fentanyl 50 mcg were administered by the Chief Accounting Officer RN Jennifer Tinoco. Pre-op Diagnosis: Coronary artery disease Post-op Diagnosis: Non-obstructive coronary arteries Left ventricular end-diastolic pressure of 19mmHg Procedure(s): Left heart catheterization with coronary angiography Access Site: Right radial artery Brief History and Clinical Indications: Patient is a 67-year-old male who is referred for [facility] for anginal symptoms in the setting of abnormal stress test. All risks, benefits and alternatives to left heart catheterization with or without percutaneous coronary intervention was discussed at length with the patient. Risk of complications including but not limited to bleeding, infection, arrhythmia, stroke, worsening kidney function, blood loss, groin hematoma, limb loss, emergency coronary artery bypass grafting, and even were discussed with the patient and all questions were answered. The patient understood and wished to proceed. Time out called, patient name, date of , medical record number, allergies, procedure performed, identify Lighting Adviser, patient and staff member concurred with accurate data, procedure carried on. Findings: LEFT HEART CATHETERIZATION FINDINGS: 1. Left main: The left main coronary artery is widely patent without any significant obstructive disease. 2. Left anterior descending: The LAD and the diagonal branches have mild luminal irregularities without any significant obstructive angiographic disease. 3. Left circumflex: The left circumflex artery and the main marginal branches have mild luminal irregularities without any significant obstructive angiographic disease. The left circumflex artery is the dominant vessel. 4. Right coronary artery: The RCA has mild luminal irregularities without any significant obstructive angiographic disease. The RCA is the non-dominant vessel. 5. Left ventricle: A. End-diastolic pressure 19mmHg. B. LV gram deferred. C. No significant gradient across aortic valve on catheter pullback. Description of Procedure: Informed consent signed and placed in the chart. Patient transferred to blood bank laboratory professional room. Prepped and draped in usual sterile fashion. 2% lidocaine injected subcutaneously in right wrist area. 22-gauge venipuncture catheter used to access the right radial artery with the Seldinger technique. 6-FR slender sheath placed in right radial artery. Nitroglycerine and Verapamil were given intraarterial through the sheath. Versacore wire advanced under fluoroscopy 5F FL4 diagnostic catheter engaged Left Main Coronary Artery. 5F FR4 diagnostic catheter engaged Right Coronary Artery Multiple orthogonal angiogram obtained and reviewed 5F FR4 diagnostic catheter crossed aortic valve to obtain LVEDP, LV angiogram deferred. Hemostasis was achieved by application of TR band. ? Assessment: Non-obstructive coronary arteries Left ventricular end-diastolic pressure of 19mmHg Post Operative Condition: Stable No significant blood loss Disposition: Home Plan: The patient will be monitored in the recovery area. Discharge home after post cath bed rest is completed. The above findings were discussed with the referring physician. Continue aggressive medical therapy and risk factor modification. ? Luisito Parker M.D. Interventional Cardiology
--- NOTE | 2022-11-11 09:50 | SUR.PHASEII ---
Pt resting in bed, denies pain or shortness of breath, VSS, NAD noted, daughter at bedside, pt used urinal, 200ml out, continue to monitor.
== END 2022-11-11 12:39 | disposition home or self-care (01) ==
PROVIDERS: PCP Emergency Medicine; Visit Provider Internal Medicine
PROC: 4A023N7 Measurement of Cardiac Sampling and Pressure, Left Heart, Percutaneous Approach (ICD-10-PCS; CPT 93452; principal; 2022-11-11 08:30)
DX: R94.39 Abnormal result of other cardiovascular function study (principal); I20.9 Angina pectoris, unspecified; J44.9 Chronic obstructive pulmonary disease, unspecified; E10.9 Type 1 diabetes mellitus without complications; I10 Essential (primary) hypertension; G47.33 Obstructive sleep apnea (adult) (pediatric); F12.90 Cannabis use, unspecified, uncomplicated; Z87.891 Personal history of nicotine dependence; Z79.51 Long term (current) use of inhaled steroids; Z79.82 Long term (current) use of aspirin
CPT/HCPCS: 36415; 80048; 85025; 93458; A9270; C1769; C1887; C1894; J1644; J2250; J3010; J7040

== ENCOUNTER 2022-11-17 13:31 | Outpatient (CLI) | payer MEDICARE, SELFPAY ==
--- NOTE | 2022-11-17 13:47 | ECHO_ITS ---
Patient Info Name: Sundeep Orellana Age: 67 years : 1955 Gender: Male Ht: 72 in Wt: 295 lbs BSA: 2.66 m2 HR: 73 bpm BP: 155 / 81 mmHg Technical Quality: Fair Exam Date: 11/17/2022 1:51 PM Exam Location: [facility] Pulmonary Patient Status: Outpatient Admit Date: 11/17/2022 Staff Ordering Physician: Orlando Ivy DO Financial Planning Consultant: Lupe Shay RDCS Attending Provider: Orlando Ivy DO Referring Physician: Biju CONNOLLY; Exam Type: CA echo doppler color flow Study Info Indications R06.09 - Other forms of dyspnea Complete two-dimensional, color flow and Doppler transthoracic echocardiogram is performed. Summary 1. Complete two-dimensional, color flow and Doppler transthoracic echocardiogram is performed. 2. Left ventricular chamber dimension is normal. 3. Left ventricular systolic function is normal, estimated at 55-60%. 4. There is moderately increased left ventricular wall thickness. 5. The left ventricular diastolic function is grade I diastolic dysfunction. 6. E/e' 9 is minimally elevated. 7. There is mild aortic valve sclerosis. Left Ventricle E/e' 9 is minimally elevated. Left ventricular chamber dimension is normal. Left ventricular systolic function is normal, estimated at 55-60%. There is moderately increased left ventricular wall thickness. The left ventricular diastolic function is grade I diastolic dysfunction. Right Ventricle Right ventricular systolic function is normal and with normal TAPSE 2.7 cm. Right ventricular chamber dimension is normal. Left Atria Left atrial chamber dimension is normal. Right Atria Right atrial chamber dimension is normal. Aortic Valve The aortic valve is trileaflet. There is mild aortic valve sclerosis. There is no aortic valve stenosis. There is no aortic valve regurgitation. Pulmonic Valve There is no pulmonic regurgitation. Mitral Valve There is no mitral valve stenosis. There is no mitral valve regurgitation. Tricuspid Valve There is no tricuspid valve regurgitation. Pericardium/Pleural There is no pericardial effusion. Inferior Vena Cava Normal inferior vena cava with >50% collapse upon inspiration consistent with normal right atrial pressure, 5 mmHg. Aorta The aortic root size at the sinus of Valsalva is normal. Left Ventricular Outflow Tract Name Value Normal LVOT 2D LVOT Diameter 2.0 cm LVOT Doppler LVOT Peak Gradient 4 mmHg LVOT Mean Gradient 2 mmHg LVOT VTI 23 cm LVOT VTI/AV VTI Ratio 1.0 LVOT Stroke Volume 74 ml LVOT CO 4.5 l/min LVOT CI 1.7 l/min/m2 Pulmonic Valve Name Value Normal RVOT Doppler RVOT Peak Gradient 3 mmHg
== END 2022-11-17 13:32 | disposition home or self-care (01) ==
PROVIDERS: PCP Emergency Medicine; Visit Provider Internal Medicine Cardiovascular Disease
DX: R06.09 Other forms of dyspnea (principal)
CPT/HCPCS: 93306

== ENCOUNTER 2022-12-02 06:37 | Outpatient (CLI) | payer MEDICARE, SELFPAY ==
[2022-12-02 07:33] LABS: Alanine Aminotransferase 19 U/L (6-50); Alkaline Phosphatase 104 U/L (38-126); Anion Gap 4 mmol/L (8-16); Aspartate Amino Transferase 19 U/L (17-59); Bilirubin,Total 0.9 mg/dL (0.2-1.3); Blood Urea Nitrogen 16 mg/dL (9-20); Calcium 8.3 mg/dL (8.4-10.2); Carbon Dioxide 33 mmol/L (22-30); Chloride 103 mmol/L (98-107); Cholesterol 161 mg/dL (0-200); Estimated Glomerular Filt Rate > 60; Glucose 105 mg/dL (65-110); HDL Direct 33 mg/dL; Potassium 4.1 mmol/L (3.4-5.0); Sodium 140 mmol/L (137-145); Triglycerides 99 mg/dL (<150)
[2022-12-02 07:34] LABS: Hemoglobin A1C 6.6 % (<5.7)
[2022-12-02 07:44] LABS: LDL Cholesterol Direct 83 mg/dL
== END 2022-12-02 06:38 | disposition home or self-care (01) ==
PROVIDERS: PCP Emergency Medicine; Visit Provider Emergency Medicine
DX: I10 Essential (primary) hypertension (principal); E11.9 Type 2 diabetes mellitus without complications
CPT/HCPCS: 36415; 80053; 80061; 83036

== ENCOUNTER 2022-12-18 12:31 | Outpatient (CLI) | payer MEDICARE, SELFPAY ==
--- NOTE | 2022-12-18 16:43 | WPDSIXMINUTE ---
Six Minute Walk Procedure Procedure Performed Pulmonary Stress Test (6 min walk) Six Minute Walk Six Minute Walk: This is a 6 minute walk test. The test was performed and interpreted in accordance with the 2014 ERS/ATS task force guidelines. of note the patient performed the walking test with 2 L nasal cannula his prescribed level Findings: The patient's resting room air oxygen saturation measured by pulse oximetry was 90% and heart rate was 87 bpm. Patient ambulated for 244 meters and oxygen saturation remained 87 to 91%. Heart rate at the end of the study was 114 bpm. 6 minutes walk study on Room air on 06/28/2019 reports distance walked was 244 m. Currently the patient has oxygen desaturation on 2 L nasal cannula with activity and should have a formal home O2 assessment.
== END 2022-12-18 12:32 | disposition home or self-care (01) ==
PROVIDERS: PCP Emergency Medicine; Visit Provider Nurse Practitioner Family
DX: J44.9 Chronic obstructive pulmonary disease, unspecified (principal)
CPT/HCPCS: 94618

== ENCOUNTER 2023-03-31 06:55 | Outpatient (CLI) | payer MEDICARE, SELFPAY ==
[2023-03-31 08:08] LABS: Alanine Aminotransferase 14 U/L (6-50); Albumin Level 3.5 g/dL (3.5-5.1); Alkaline Phosphatase 84 U/L (38-126); Anion Gap 5 mmol/L (8-16); Aspartate Amino Transferase 16 U/L (17-59); Bilirubin,Total 1.1 mg/dL (0.2-1.3); Blood Urea Nitrogen 13 mg/dL (9-20); Calcium 8.2 mg/dL (8.4-10.2); Carbon Dioxide 36 mmol/L (22-30); Chloride 100 mmol/L (98-107); Cholesterol 125 mg/dL (0-200); Estimated Glomerular Filt Rate > 60; Glucose 97 mg/dL (65-110); HDL Direct 32 mg/dL; Potassium 4.3 mmol/L (3.4-5.0); Sodium 141 mmol/L (137-145); Triglycerides 134 mg/dL (<150)
[2023-03-31 08:19] LABS: LDL Cholesterol Direct 70 mg/dL
[2023-03-31 09:22] LABS: Creatinine Urine 112.6 mg/dL
[2023-03-31 09:27] LABS: MALB Creatinine Ratio 12.5 mg/g (0-30); Microalbumin Urine Random 14.1 mg/L (0-16.7)
[2023-04-04 17:14] LABS: Vitamin D 1,25 (OH)2 Total 28 pg/mL (18-72); Vitamin D2 1,25 (OH)2 <8 pg/mL; Vitamin D3 1,25 (OH)2 28 pg/mL
== END 2023-03-31 06:56 | disposition home or self-care (01) ==
LOC: ANHLAB 06:56
PROVIDERS: PCP Emergency Medicine; Visit Provider Emergency Medicine
DX: E78.5 Hyperlipidemia, unspecified (principal); E55.9 Vitamin D deficiency, unspecified; E11.9 Type 2 diabetes mellitus without complications
CPT/HCPCS: 36415; 80053; 80061; 82043; 82652; 83036

== ENCOUNTER 2023-04-10 09:30 | Outpatient (RCR) | payer MEDICARE, SELFPAY | END 2023-04-10 23:59 | disposition home or self-care (01) | LOC: ANHCPREHAB 09:30 | PROVIDERS: PCP Emergency Medicine; Visit Provider Nurse Practitioner Family | DX: J44.9 Chronic obstructive pulmonary disease, unspecified (principal) | CPT/HCPCS: 94625 ==

== ENCOUNTER 2023-04-24 09:30 | Outpatient (RCR) | payer MEDICARE, SELFPAY | END 2023-05-08 10:53 | disposition home or self-care (01) | LOC: ANHCPREHAB 09:30 | PROVIDERS: PCP Emergency Medicine; Visit Provider Nurse Practitioner Family | DX: J44.9 Chronic obstructive pulmonary disease, unspecified (principal) | CPT/HCPCS: 94625 ==

== ENCOUNTER 2023-04-29 12:24 | Outpatient (CLI) | payer MEDICARE, SELFPAY ==
--- NOTE | 2023-04-29 15:54 | WPDSIXMINUTE ---
Six Minute Walk Procedure Procedure Performed Pulmonary Stress Test (6 min walk) Six Minute Walk Six Minute Walk: This is a 6 minute walk test. The test was performed and interpreted in accordance with the 2014 ERS/ATS task force guidelines. Of note the patient walked with 3 L nasal cannula which is his home dose. Findings: The patient's resting oxygen saturation with 3 L nasal cannula measured by pulse oximetry was 93% and heart rate was 77 bpm. Patient ambulated for 213 meters and oxygen saturation remained 93 to 94%. Heart rate at the end of the study was 89 bpm. The patient demonstrated no hypoxemia on 3 L nasal cannula with ambulation.
== END 2023-04-29 12:25 | disposition home or self-care (01) ==
PROVIDERS: PCP Emergency Medicine; Visit Provider Nurse Practitioner Family
DX: R06.09 Other forms of dyspnea (principal); J44.9 Chronic obstructive pulmonary disease, unspecified
CPT/HCPCS: 94618

== ENCOUNTER 2023-07-20 10:59 | Outpatient (CLI) | payer MEDICARE, SELFPAY ==
--- NOTE | ~2023-07-20 | CT_ITS ---
EXAMINATION: CT lung screening DATE: 07/20/2023 11:19 INDICATION: TECHNIQUE: Computed tomography (CT) of the chest was performed without intravenous contrast. The dose -length product was 407.71 mGy-cm. Automated exposure control and iterative reconstruction technique were employed. COMPARISON: CT dated 07/18/2022 FINDINGS: Heart size is normal. No significant pleural or pericardial effusion. Mild mediastinal lymp h node enlargement, likely reactive. Chronic bilateral lower lobe airspace disease which may represen t atelectasis or pneumonia. Status post cholecystectomy. There is emphysema. There are small scattere d nodules measuring 3 mm or less. There is emphysema. No endobronchial lesions. No pneumothorax. IMPRESSION: 1. Lung-RADS category 2: Benign appearance or behavior. Continue annual screening with noncontrast lo w-dose chest CT in 12 months. 2: Chronic lower lobe infiltrates which may represent atelectasis or atypical pneumonia. Reviewed, dictated and finalized at location B. IMPRESSION: 1. Lung-RADS category 2: Benign appearance or behavior. Continue annual screeni ng with noncontrast low-dose chest CT in 12 months. 2: Chronic lower lobe infiltrates which may represent atelectasis or atypical p neumonia.
== END 2023-07-20 11:00 | disposition home or self-care (01) ==
PROVIDERS: PCP Internal Medicine; Visit Provider Nurse Practitioner Family
DX: Z12.2 Encounter for screening for malignant neoplasm of respiratory organs (principal); R91.8 Other nonspecific abnormal finding of lung field; Z87.891 Personal history of nicotine dependence
CPT/HCPCS: 71271

== ENCOUNTER 2023-07-30 08:32 | Outpatient (CLI) | payer MEDICARE, SELFPAY ==
[2023-07-30 09:15] LABS: Alanine Aminotransferase 15 U/L (6-50); Albumin Level 4.1 g/dL (3.5-5.1); Alkaline Phosphatase 80 U/L (38-126); Anion Gap 6 mmol/L (8-16); Aspartate Amino Transferase 19 U/L (17-59); Bilirubin,Total 0.9 mg/dL (0.2-1.3); Blood Urea Nitrogen 13 mg/dL (9-20); Calcium 8.7 mg/dL (8.4-10.2); Carbon Dioxide 31 mmol/L (22-30); Chloride 103 mmol/L (98-107); Cholesterol 139 mg/dL (0-200); Estimated Glomerular Filt Rate > 60; Glucose 93 mg/dL (65-110); HDL Direct 35 mg/dL; Sodium 140 mmol/L (137-145); Triglycerides 92 mg/dL (<150)
[2023-07-30 09:26] LABS: LDL Cholesterol Direct 69 mg/dL
[2023-07-30 09:44] LABS: Hemoglobin A1C 5.6 % (<5.7)
[2023-07-30 10:13] LABS: Creatinine Urine 53.3 mg/dL
[2023-07-30 10:16] LABS: MALB Creatinine Ratio 22.9 mg/g (0-30); Microalbumin Urine Random 12.2 mg/L (0-16.7)
== END 2023-07-30 08:33 | disposition home or self-care (01) ==
LOC: ANHLAB 08:33
PROVIDERS: PCP Internal Medicine; Visit Provider Emergency Medicine
DX: E11.9 Type 2 diabetes mellitus without complications (principal); E78.5 Hyperlipidemia, unspecified
CPT/HCPCS: 36415; 80053; 80061; 82043; 83036

== ENCOUNTER 2023-12-03 08:06 | Outpatient (CLI) | payer OTHER, SELFPAY ==
[2023-12-03 08:36] LABS: Alanine Aminotransferase 14 U/L (6-50); Alkaline Phosphatase 83 U/L (38-126); Anion Gap 5 mmol/L (8-16); Aspartate Amino Transferase 21 U/L (17-59); Bilirubin,Total 0.9 mg/dL (0.2-1.3); Blood Urea Nitrogen 17 mg/dL (9-20); Calcium 8.7 mg/dL (8.4-10.2); Carbon Dioxide 29 mmol/L (22-30); Chloride 103 mmol/L (98-107); Cholesterol 137 mg/dL (0-200); Estimated Glomerular Filt Rate > 60; Glucose 90 mg/dL (65-110); HDL Direct 41 mg/dL; Sodium 137 mmol/L (137-145); Triglycerides 79 mg/dL (<150)
[2023-12-03 08:47] LABS: LDL Cholesterol Direct 73 mg/dL
[2023-12-03 09:06] LABS: Prostate Specific Antigen 0.5 ng/mL (< OR = 4.0)
[2023-12-03 09:18] LABS: Hemoglobin A1C 5.8 % (<5.7)
[2023-12-03 09:32] LABS: Vitamin D 25 Hydroxy < 12.8 ng/mL
== END 2023-12-03 08:07 | disposition home or self-care (01) ==
PROVIDERS: PCP Emergency Medicine; Visit Provider Emergency Medicine
DX: Z12.5 Encounter for screening for malignant neoplasm of prostate (principal); Z13.220 Encounter for screening for lipoid disorders; E55.9 Vitamin D deficiency, unspecified; E11.9 Type 2 diabetes mellitus without complications
CPT/HCPCS: 36415; 80053; 80061; 82306; 83036; 84153; G0103

== ENCOUNTER 2024-02-02 13:01 | Emergency (ER) | payer OTHER, SELFPAY ==
--- NOTE | ~2024-02-02 | CT_ITS ---
EXAMINATION: CT abdomen pelvis wo con DATE: 02/02/2024 16:20 INDICATION: Right flank pain TECHNIQUE: Computed tomography (CT) of the abdomen and pelvis was performed without intravenous contr ast. Automated exposure control and iterative reconstruction technique were employed. The dose-length product was 1329.08 mGy-cm. COMPARISON: None FINDINGS: Linear band of discoid atelectasis/scarring in the right middle and lower lobes. Thicker bandlike con solidation in the left lower lobe with corresponding volume loss suggesting additional atelectasis/sc arring. Heart size is normal. No pericardial or pleural effusion. Cholecystectomy clips the gallbladd er fossa. Liver, spleen, pancreas, bilateral adrenal glands and left kidney are normal. There are 3 a t least partially obstructing stones in the distal right ureter, the distalmost at the ureterovesicul ar junction measuring 1 mm and 2 additional 3 to 4 mm stones within 1.5 cm at the ureterovesicular ju nction. There is mild right hydroureteronephrosis. There are at least 4 additional stones in the righ t kidney measuring up to 3 mm. Bladder is normal. There is mild colonic diverticulosis with a descend ing colon predominance and without adjacent inflammatory change to suggest diverticulitis. Small edy l and appendix are normal. No free intraperitoneal gas or fluid. No pathologically enlarged abdominal or pelvic lymphadenopathy. 9.5 x 3.1 x 6.8 cm lenticular macroscopic fat attenuation intramuscular l ipoma within the posterior right gluteus medius muscle belly. There are small bilateral fat-containin g inguinal hernias. Moderate lower thoracic and mild lumbar spondylosis. IMPRESSION: 1. Right nephrolithiasis with 3 days stones measuring up to 3-4 mm in the distalmost right ureter wit h mild right hydroureteronephrosis. Reviewed, dictated and finalized at location A. IMPRESSION: 1. Right nephrolithiasis with 3 days stones measuring up to 3-4 mm in the dista lmost right ureter with mild right hydroureteronephrosis.
[2024-02-02 13:10] VITALS: BP 150/76; PULSE 65; RESP 20; TEMP 36.2; O2SAT 94
[2024-02-02 15:23] LABS: Basophils Absolute Auto 0.1 K/mm3 (0.0-0.1); Basophils Percent Auto 0.7 % (0.2-1.2); Eosinophils Percent Auto 0.2 % (0-4.4); Hematocrit 41.1 % (42.0-52.0); Hemoglobin 13.3 g/dL (14.0-18.0); Immature Granulocyte Absolute 0.25 K/mm3 (0.00-0.031); Immature Granulocyte Percent A 2.8 % (0-0.5); Lymphocytes Absolute Auto 0.73 K/mm3 (0.9-3.2); Lymphocytes Percent Auto 8.3 % (18.3-44.2); Mean Corpuscular HGB Conc 32.4 g/dl (32-36); Mean Corpuscular Hemoglobin 30.7 pg (26-34); Mean Corpuscular Volume 94.9 fl (80-100); Mean Platelet Volume 10.4 fl (7.4-10.4); Monocytes Absolute Auto 0.4 K/mm3 (0.1-0.6); Neutrophils Absolute Auto 7.3 K/mm3 (1.3-6.7); Platelet Count Result 218 k/mm3 (150-375); Red Blood Count 4.33 M/mm3 (4.6-6.20); Red Cell Distribution Width 13.2 % (11.5-14.5); White Blood Count 8.8 K/mm3 (4.5-10.0)
[2024-02-02 15:31] LABS: Appearance Urine Clear (Clear); Bacteria Urine None Seen /hpf; Bilirubin Urine Negative (Negative); Blood Urine Negative (Negative); Color Urine Yellow (Yellow); Glucose Urine UA Negative (Negative); Ketones Urine 2+ mg/dL (Negative); Leukocyte Esterase Ur Negative LEU/UL (Negative); Nitrate Urine Negative (Negative); Non Pathogenic Casts 0-2; Protein Urine Trace mg/dL (Negative); Specific Grav Ur 1.018 (1.001-1.035); Squamous Epithelial Cell Urine None Seen /hpf (Few); WBC Urine 0-5 /hpf (0-3)
[2024-02-02 15:35] LABS: Alanine Aminotransferase 15 U/L (6-50); Albumin Level 4.4 g/dL (3.5-5.1); Alkaline Phosphatase 104 U/L (38-126); Anion Gap 8 mmol/L (4-12); Aspartate Amino Transferase 20 U/L (17-59); Blood Urea Nitrogen 24 mg/dL (9-20); Calcium 9.1 mg/dL (8.4-10.2); Carbon Dioxide 30 mmol/L (22-30); Chloride 102 mmol/L (98-107); Estimated CRCL calculation 78 ml/min; Estimated Glomerular Filt Rate > 60; Glucose 150 mg/dL (65-110); Potassium 3.9 mmol/L (3.4-5.0); Sodium 140 mmol/L (137-145)
[2024-02-02 15:36] LABS: Add Urine Microscopic? YES
[2024-02-02 15:46] VITALS: BP 158/77; PULSE 66; RESP 20; O2SAT 99
[2024-02-02] MEDS: KETOROLAC 30 MG/ML VIAL (*BKC) IM (16:41)
[2024-02-02] MEDS: ONDANSETRON HCL ODT 4 MG TABLET PO (16:41)
--- NOTE | 2024-02-02 17:05 | ED.GENADULT ---
HPI - General Adult General Chief complaint: Back Pain/Injury Stated complaint: back pain Time Seen by Provider: 02/02/24 16:09 History of Present Illness HPI narrative: This is a 68-year-old male, with history of hypertension and diabetes, presents emergency department complaining of right-sided flank pain. The patient describes the pain as sharp, intermittent, radiating to the right lower quadrant and groin. He has some intermittent nausea though denies vomiting. He denies dysuria or hematuria the states his urine has appeared darker than usual. Related Data Allergies Allergy/AdvReac Type Severity Reaction Status Date / Time No Known Allergies Allergy Verified 02/02/24 15:46 Review of Systems Review of Systems: CONSTITUTIONAL: Denies fever, chills, or sweats. EYES: Denies visual changes, redness, or discharge. ENT: Denies rhinorrhea, congestion, sore throat, or otalgia. CARDIOVASCULAR: Chronic lower extremity edema bilaterally Denies chest pain, palpitations RESPIRATORY: Denies cough or dyspnea. GASTROINTESTINAL: Right flank and right lower quadrant abdominal pain, nausea Denies vomiting, or diarrhea. GENITOURINARY: Denies dysuria or hematuria. SKIN: Denies rash or itching. MUSCULOSKELETAL: Denies back pain, joint pain, or myalgia. NEUROLOGIC: Denies headache, numbness, dizziness, or weakness. PSYCHIATRIC: Denies anxiety or depression. [facility] Past Medical History Medical History Acute pain of right knee Arthritis of foot, degenerative Bilateral cellulitis of lower leg COPD (chronic obstructive pulmonary disease) COPD (chronic obstructive pulmonary disease) Diabetes mellitus Dyspnea on exertion Edema of both legs Epigastric hernia Hallux valgus, acquired, bilateral History of tobacco abuse Hyperglycemia due to type 1 diabetes mellitus Hypertension Hypokalemia Incisional hernia, without obstruction or gangrene Lung nodules Marijuana smoker Mixed hyperlipidemia [place] (obstructive sleep apnea) Pes planus of both feet Primary generalized (osteo)arthritis Primary osteoarthritis of right knee Severe arterial insufficiency of lower extremity Sleep-disordered breathing Umbilical hernia without obstruction and without gangrene Surgical History Surgical History H/O hernia repair History of cataract surgery Family History Family History Mother Family history of congestive heart failure Hypertension Cerebrovascular accident Sibling Diabetes mellitus Social History Social History Smoking packs per day: 1.5 Smoking cigarettes per day: 30.0 Years smoked: 49 Smoking pack-years: 73.50 Smoking status: Former smoker Tobacco type: cigarettes Second hand tobacco smoke exposure: Yes (not currently) Smoking end date: 06/12/20 Additional smoking assessment comments: states smoke free since 2019 Alcohol intake: former Substance use: current Substance use type: marijuana Other substance usage details: quit smoking 6 months ago, takes edibles Current Housing: Decline to Answer Concerned About Future Housing: Decline to Answer Difficulty Paying Gas/Electric Bills: Decline to Answer Difficulty Paying for Meds: Decline to Answer Currently Unemployed: Decline to Answer Education: Decline to Answer Difficulty w/ Childcare or Family Care: Decline to Answer Living arrangements: alone Spiritual care concerns: No Exam Narrative: GENERAL: Well-developed, well-nourished, and in no acute distress. HEAD: Normocephalic, atraumatic. EYES: PERRLA and EOMI. CHEST: Clear to auscultation. No respiratory distress. No wheezes rales or rhonchi HEART: Regular rate and rhythm. No murmur heard. Normal peripheral pulses. ABDOMEN: Soft, mild right lower quadrant abdominal pain
[2024-02-02] MEDS: oxyCODONE/ACETAMINOPHEN (*CRX) 5-325 MG TABLET 1 TABLET PO (17:17)
== END 2024-02-02 17:23 | disposition home or self-care (01) ==
PROVIDERS: Emergency Provider Preventive Medicine Aerospace Medicine; PCP Emergency Medicine
DX: N20.1 Calculus of ureter (principal); J44.9 Chronic obstructive pulmonary disease, unspecified; E10.9 Type 1 diabetes mellitus without complications; I10 Essential (primary) hypertension; G47.30 Sleep apnea, unspecified; M19.90 Unspecified osteoarthritis, unspecified site
CPT/HCPCS: 36415; 74176; 80053; 81001; 85025; 96372; 99284; A9270; J1885

== ENCOUNTER 2024-02-12 08:17 | Outpatient (CLI) | payer OTHER, SELFPAY ==
--- NOTE | ~2024-02-12 | US_ITS ---
EXAMINATION: US_VDOPREFBI_US DATE: 02/12/2024 09:59 INDICATION: Localized lower limb edema. TECHNIQUE: Grayscale ultrasound images without and with compression and Doppler ultrasound images of the bilateral lower extremity veins were obtained. COMPARISON: None. FINDINGS: The visualized portions of right common femoral vein, profunda (deep) femoral vein, femoral vein, pop liteal vein, peroneal veins, and posterior tibial veins are patent. Right greater saphenous vein herbie ures 8 mm the upper thigh, 4 mm in the lower thigh, and 2 mm in the calf. Right small saphenous vein measures 3 mm in the upper calf and 3 mm in the lower calf. The visualized portions of left common femoral vein, profunda femoral vein, femoral vein, popliteal v ein, peroneal veins, and posterior tibial veins are patent. Left greater saphenous vein measures 5 mm the upper thigh, 4 mm in the lower thigh, and 4 mm in the calf. Left small saphenous vein measures 3 mm in the upper calf and 2 mm in the lower calf. IMPRESSION: 1. No deep venous thrombosis. 2. No reflux. Reviewed, dictated and finalized at location E.
--- NOTE | ~2024-02-12 | US_ITS ---
EXAMINATION: US arterial ankle brachial ind DATE: 02/12/2024 10:03 INDICATION: Peripheral vascular disease with claudication TECHNIQUE: Segmental pressures and plethysmographic and Doppler waveforms of the brachial and lower e xtremity arteries were obtained. COMPARISON: None. FINDINGS: Right and left brachial artery pressures of 143 mm Hg and 143 mm Hg, respectively, are concordant (no rmal difference <= 30 mmHg). The right ankle-brachial index (PARVEEN) is 1.31 (normal >= 0.9-1.0). The right great toe-brachial index (TBI) is 0.97 (normal >= 0.65). Arterial Doppler waveforms are biphasic with brisk systolic upstrokes at both right posterior tibial and dorsalis pedis arteries. The left PARVEEN is 1.24. The left TBI is 0.97. Arterial Doppler waveforms are biphasic with brisk systol ic upstrokes at both left posterior tibial and dorsalis pedis arteries. IMPRESSION: 1. No significant arterial occlusive disease to either lower limb with normal bilateral ABIs and TBIs . Reviewed, dictated and finalized at location A. IMPRESSION: 1. No significant arterial occlusive disease to either lower limb with normal b ilateral ABIs and TBIs.
== END 2024-02-12 08:18 | disposition home or self-care (01) ==
PROVIDERS: PCP Emergency Medicine; Visit Provider Orthopaedic Surgery
DX: I87.2 Venous insufficiency (chronic) (peripheral) (principal); R60.0 Localized edema; I73.9 Peripheral vascular disease, unspecified
CPT/HCPCS: 93922; 93970

== ENCOUNTER 2024-02-23 12:33 | Outpatient (CLI) | payer OTHER, SELFPAY ==
--- NOTE | ~2024-02-23 | CT_ITS ---
EXAMINATION: CT abdomen pelvis wo con DATE: 02/23/2024 13:03 INDICATION: Right ureteral stone. TECHNIQUE: Computed tomography (CT) of the abdomen and pelvis was performed without intravenous contr ast. Automated exposure control and iterative reconstruction technique were employed. The dose-length product was 929.39 mGy-cm. COMPARISON: CT abdomen and pelvis 02/02/2024 FINDINGS: The visualized portions of the lung bases demonstrate mild atelectasis. No pleural effusion . The heart size is normal. No pericardial effusion. There is a right posterior diaphragmatic hernia containing fat. The liver is normal. There are changes of cholecystectomy. Calcifications in the sple en are consistent with old granulomatous disease. The pancreas and adrenal glands are normal. There a re approximately 3 stones in right kidney measuring up to 3 mm. There is mild right hydronephrosis an d hydroureter. There is a 5 mm stone at right ureterovesicular junction. There is a 5 mm stone in dis hazel right ureter. There is an 11 mm cyst in left kidney. There are bilateral inguinal hernias contain ing fat. There is diverticulosis of the colon without evidence of diverticulitis. There are no dilate d loops of bowel. The appendix is normal. There are no pathologically enlarged lymph nodes. There is no free intraperitoneal fluid. There is a lipoma in right gluteus medius muscle. There is mild thorac ic and lumbar spondylosis. IMPRESSION: 1. Two 5 mm stones in distal right ureter with mild right hydronephrosis and hydroureter. 2. Nonobstructing right kidney stones. Reviewed, dictated and finalized at location A. IMPRESSION: 1. Two 5 mm stones in distal right ureter with mild right hydronephrosis and hy droureter. 2. Nonobstructing right kidney stones.
== END 2024-02-23 12:34 | disposition home or self-care (01) ==
PROVIDERS: PCP Emergency Medicine; Visit Provider Physician Assistant
DX: N20.1 Calculus of ureter (principal); N20.0 Calculus of kidney
CPT/HCPCS: 74176

== ENCOUNTER 2024-02-25 07:46 | Outpatient (RCR) | payer OTHER, SELFPAY ==
--- NOTE | 2024-02-25 09:58 | PTOPEVAL1 ---
Assessment and note entered by Alicia Howell, PT Evaluation Information Assessment Status Evaluation Diagnosis R and L foot pain/ lymphedema of legs and feet Onset Aug 2023 Subjective Information chronic issues with foot pain; increased with cardiopulmonary rehab and more activity; cellulitis of both legs; recent doppler test negative; x ray reports: severe pes planovalgus, mid foot arthritis, moderate hallux valgus have an order for bilateral custom foot orthotics and depth shoes Activity: able to do all self care and in home tasks with difficulty; one entry step into home; use oxygen PRN, with exertion 2L/min; drives; sleep in recliner due to breathing issues; does not do any leg exercises--problems with breathing; Reported Pain Level Pain Score Self Report Additional Pain Score Comments pain range in the past week 2-9/10; both feet sore and aching; pain in knees; increase with: walking/standing 30 minute decrease pain: sit, rest, elevate legs in recliner take aleve PRN have swelling in his legs, L more than R; Assessment PT Clinical Summary Mandeep has the diagnosis of foot and leg pain with lymphedema in legs and feet. His medical history includes: cellulitis in both legs, HTN, diabetes, COPD with oxygen used with exertion, arthritis in feet and knees, obesity. He was in the ER recently with kidney stones and has a referral to a urologist. LE functional scale- self rating of 76% limitation in activity level. Reports stand/walk tolerance of 30 min. With the evaluation: he has lymphedema in both lower legs, with skin and tissue changes---redness and dry, flaking skin; his abdomen in enlarged with firmness; and decreased strength of legs and 5 reps sit/stand time of 32 seconds with use of 1 UE. Skilled PT services are indicated for lymphedema treatment: compression wraps, manual lymph drainage, intermittent compression pump and exercises to increase LE strength, education for
--- NOTE | 2024-02-25 10:03 | OPREHPOC ---
Outpatient Therapy Plan of Care This is a Multidisciplinary Plan of Care that may contain components documented by all disciplines (PT, OT, and ST.) PT Problem 1 PT Problem #1 Knowledge Deficit PT Goal 1 Goal *indep with HEP *education for lymphedema care and management Target Visit 10 PT Problem 2 PT Problem #2 Pain PT Goal 1 Goal 1* pain of legs at worst of 6/10 2* LE functional scale rating of 58% limitation in activity Target Visit 10 PT Problem 3 PT Problem #3 Impaired Functional Mobility PT Goal 1 Goal 1* sit/stand without use of UE from 18 seat 2* 5 reps sit/stand time of 22 seconds 3* pt able to reach his feet and don/doff compression garment indep 4* pt able to perform sitting R and L LE exercises x 20 reps Target Visit 10 PT Problem 4 PT Problem #4 Impaired Lymphatic System PT Goal 1 Goal improve lymphedema, evident by: circumferential measurement to 44 cm from bottom of foot 1* R 445 cm 2* L 445 cm with palpation over lower leg, no fibrotic or firm tissue 3* R 4* L no edema over dorsum of foot 5* R 6* L minimal discoloration of lower leg tissue 7* R8* L Target Visit 10
--- NOTE | 2024-03-30 13:30 | PTOPDC ---
Assessment and note entered by Alicia Howell, PT Discharge Report Assessment Status Discharge - Pt Not Present Diagnosis R and L foot pain/ lymphedema of legs and feet Onset Aug 2023 Subjective Information pt was not seen this date Assessment PT Clinical Summary Mandeep received the PT evaluation and then did not return for treatment. Discharge PT services. The goals were not addressed. Plan of Care PT Services Indicated No
== END 2024-03-30 14:44 | disposition home or self-care (01) ==
LOC: ANHPT 07:46
PROVIDERS: PCP Emergency Medicine; Visit Provider Orthopaedic Surgery
DX: M21.41 Flat foot [pes planus] (acquired), right foot (principal); M21.42 Flat foot [pes planus] (acquired), left foot; M20.11 Hallux valgus (acquired), right foot; M20.12 Hallux valgus (acquired), left foot
CPT/HCPCS: 97161; 97530

== ENCOUNTER 2024-03-01 00:54 | Day surgery (SDC) | payer OTHER, SELFPAY ==
--- NOTE | 2024-02-29 09:42 | PC.NURSE ---
Report to the Outpatient Waiting Room, entrance under the green pavilion located off [facility], at time __8:15 AM on date __03/01/24 . Planned Procedure Time: __10:15 AM . Time changes happen often and if your time is changed the preop area will call you the afternoon before. - You and your visitor will be asked to self-screen and do not enter if you have any COVID symptoms. - A mask is optional within the hospital at this time. Patients may have clear liquids (water, carbonated beverages, clear teas, apple juice) until 3 hours prior to surgery( 7:15 AM ) with a maximum of 20 ounces. - No food from midnight until time of surgery - Infants may have breast milk until 4 hours before surgery, formula 6 hours prior to surgery. - Children will be allowed to drink immediately following surgery. If applicable, please bring a bottle or sippy cup to assist with drinking. Juice, water, soda, and popsicles are readily available. For infants on formula, please bring formula the day of surgery. Pacifiers are allowed. Take the following medications with a SIP of water the morning of surgery: _AMLODIPINE,BREZTRI INHALER DO NOT STOP ANY OF YOUR OTHER PRESCRIPTION MEDICATIONS PRIOR TO SURGERY ?EXCEPT THE FOLLOWING Medications to discontinue per physician NONE Date to take last dose Please no make-up, nail romansh, hairspray, perfume, deodorant, or body powder the day of surgery. No jewelry (including any body piercings) or valuables the day of surgery, leave them at home. Please take a shower or bath the night before, or the morning of, surgery with an antibacterial soap. Wear comfortable, loose fitting clothing. Children are encouraged to wear pajamas. - Jewelry must be removed prior to entering the operating room. Rings and piercings that are not removed may be cut off. - The hospital will not accept responsibility for valuables. - Please leave all valuables, including medications, at home the day of surgery. If you are going home after surgery, a licensed tractor trailer truck driver must drive you home. - NO public transportation without another adult if you receive anesthesia. - We recommend that an adult stay with you for 24 hours following discharge. - We also recommend that you do not drive, make important decision, drink alcoholic beverages, or take any drugs that were not prescribed by your health care provider for at least 24 hours after your discharge time. For Pediatric surgeries, we recommend two adults accompany the child home. Follow any additional instructions given to you from your surgeon. If you or anyone in your household have experienced Covid symptoms in the past week, please notify your surgeon or the nurse liaison at the phone number below for possible testing. Telephone instructions given to __PATIENT and asked if any additional questions and then verbalized understanding. Patient advised to call surgeon office or pre surgery nurse liaison [phone] if any additional questions.
[2024-02-29 09:49] VITALS: BMI 38.0
[2024-03-01] VITALS (9 sets, daily range): BP systolic 120–153; BP diastolic 65–78; PULSE 62–65; RESP 14–20; TEMP 36.1–36.5; O2SAT 92–98
--- NOTE | ~2024-03-01 | XR_ITS ---
EXAMINATION: XR retrograde pyelo w/stent RT DATE: 03/01/2024 11:42 INDICATION: Right ureteral stone. TECHNIQUE: 5 intraoperative fluoroscopic views of the abdomen and pelvis were obtained. I was not pre sent. Fluoroscopy exposure time was 8 seconds. COMPARISON: CT abdomen and pelvis 03/01/2024 FINDINGS: Surgical clips in the right upper quadrant are likely from cholecystectomy. A right-sided r etrograde pyelogram demonstrates mild hydronephrosis and hydroureter. The final image demonstrates a right internal ureteral stent in expected position. IMPRESSION: 1. Mild right hydronephrosis and hydroureter. Right internal ureteral stent in expected position. Reviewed, dictated and finalized at location A.
--- NOTE | ~2024-03-01 | CT_ITS ---
EXAMINATION: CT abdomen pelvis wo con DATE: 03/01/2024 09:30 INDICATION: Right ureteral calculus. TECHNIQUE: Computed tomography (CT) of the abdomen and pelvis was performed without intravenous contr ast. Automated exposure control and iterative reconstruction technique were employed. The dose-length product was 1334.47 mGy-cm. COMPARISON: CT abdomen and pelvis 02/23/2024 FINDINGS: The visualized portions of the lung bases demonstrate mild atelectasis. No pleural effusion . The heart size is normal. There are coronary artery calcifications. No pericardial effusion. There is mild bilateral gynecomastia. Calcifications in the liver and spleen are consistent with old granul omatous disease. The pancreas and adrenal glands and are normal. There are six stones in right kidney measuring up to 4 mm. There is mild right hydronephrosis and hydroureter. There is a 4 mm stone in d istal right ureter. There is an 11 mm cyst in left kidney. The prostate is mildly enlarged. There are bilateral inguinal hernias containing fat. There is diverticulosis of the colon without evidence of diverticulitis. There are no dilated loops of bowel. The appendix is normal. There are no pathologica lly enlarged lymph nodes. There is no free intraperitoneal fluid. There is a 5.8 cm lipoma in right g luteus medius muscle. There is mild thoracic and lumbar spondylosis. IMPRESSION: 1. 4 mm stone in distal right ureter with mild right hydronephrosis and hydroureter. 2. Nonobstructing right kidney stones. Reviewed, dictated and finalized at location A. IMPRESSION: 1. 4 mm stone in distal right ureter with mild right hydronephrosis and hydrour eter. 2. Nonobstructing right kidney stones.
--- NOTE | 2024-03-01 07:36 | ECG_ITS ---
SEE SCANNED COPY FOR CONFIRMED REPORT MTDD
--- NOTE | 2024-03-01 07:58 | WPDHPUPDATE1 ---
History and Physical Update Update Date/Time: 03/01/24 07:58 History and Physical has been reviewed, including an updated exam of the patient. There are NO changes in the patient's condition. Risks, benefits, and alternatives have been discussed and questions answered. Patient agrees to proceed with procedure. Proceed with cystoscopy, right retrograde, right ureteroscopy with stone extraction, possible laser, stent placement
[2024-03-01] MEDS: LACTATED RINGERS 1,000 ML 30 ML IV CONT (09:00)
[2024-03-01 09:06] LABS: Glucose Point of Care 111 mg/dl (65-105)
--- NOTE | 2024-03-01 10:32 | WPDANESEPPF ---
Anes - Initial Pre Proc Eval Procedure: Operation Date: 03/01/24 10:15 Proposed Procedures p Cystoscopy, Right Ureteroscopy, Possible Right Retrograde Pyelogram, Possible Right Stone Extraction, Possible Right Stent Placement, Possible Holmium Laser - Judah Walters MD Date/Time: 03/01/24 10:32 Surgeon: Judah Walters MD Pre Op Diagnosis: right ureteral stones Patient Data Age: 68 Gender: M Height: 1.83 m Weight: 126.5 kg Last Vital Signs Temp 97.7 F 03/01/24 08:41 Pulse 65 03/01/24 08:41 Resp 20 03/01/24 08:41 BP 153/66 H 03/01/24 08:41 Pulse Ox 94 03/01/24 08:41 O2 Del Method Room Air 03/01/24 08:41 Allergies Allergy/AdvReac Type Severity Reaction Status Date / Time No Known Allergies Allergy Verified 03/01/24 08:39 Home Medications Medication Instructions Recorded Confirmed Type albuterol sulfate 90 mcg/actuation See Rx Instructions .Route 02/19/23 03/01/24 Rx aerosol inhaler .COMPLEX #8.5 grams furosemide 20 mg tablet See Rx Instructions .Route 05/28/23 03/01/24 Rx .COMPLEX #90 tabs albuterol sulfate 2.5 mg/3 mL See Rx Instructions .Route 11/17/23 03/01/24 Rx (0.083 %) solution for nebulization .COMPLEX #1,125 mL tamsulosin 0.4 mg capsule 0.4 mg PO DAILY #14 caps 02/02/24 03/01/24 Rx amlodipine 10 mg tablet See Rx Instructions .Route 02/22/24 03/01/24 Rx .COMPLEX #90 tabs budesonide 160 mcg-glycopyr 9 2 inh inhalation QAM AND QPM #10.7 02/22/24 03/01/24 Rx mcg-formot 4.8 mcg/actuation HFA grams inhaler (Breztri Aerosphere) losartan 100 mg tablet See Rx Instructions .Route 02/22/24 03/01/24 Rx .COMPLEX #90 tabs metformin 1,000 mg tablet See Rx Instructions .Route 02/22/24 03/01/24 Rx .COMPLEX #180 tabs potassium chloride 10 mEq See Rx Instructions .Route 02/22/24 03/01/24 Rx tablet,extended release(part/cryst) .COMPLEX #90 tabs Laboratory Tests 03/01/24 09:04 POC Capillary Glucose 111 H mg/dl (65-105) Patient hx anesthesia problems: none Family hx anesthesia problems: none Results Review: All pre-operative results and documents have been reviewed as part of the pre-operative evaluation. [facility] Past Medical History Medical History Acute pain of right knee Arthritis of foot, degenerative Bilateral cellulitis of lower leg COPD (chronic obstructive pulmonary disease) COPD (chronic obstructive pulmonary disease) Diabetes mellitus Dyspnea on exertion Edema of both legs Epigastric hernia Hallux valgus, acquired, bilateral History of tobacco abuse Hyperglycemia due to type 1 diabetes mellitus Hypertension Hypokalemia Incisional hernia, without obstruction or gangrene Lung nodules Marijuana smoker Mixed hyperlipidemia PEACE (obstructive sleep apnea) Pes planus of both feet Primary generalized (osteo)arthritis Primary osteoarthritis of right knee Severe arterial insufficiency of lower extremity Sleep-disordered breathing Umbilical hernia without obstruction and without gangrene Surgical History Surgical History H/O hernia repair History of cataract surgery Family History Family History Mother Family history of congestive heart failure Hypertension Cerebrovascular accident Sibling Diabetes mellitus Social History Social History Smoking packs per day: 1.5 Smoking cigarettes per day: 30.0 Years smoked: 30 Smoking pack-years: 45.00 Smoking status: Former smoker Tobacco type: cigarettes Second hand tobacco smoke exposure: Yes (not currently) Smoking end date: 10/12/17 Additional smoking assessment comments: states smoke free since 2019 Alcohol intake: current Drinks per week: 4 Substance use: current Substance use type: marijuana Other sub
[2024-03-01] MEDS: ceFAZolin 3 GM/D5W 100 ML 100 ML IVPB (10:56)
[2024-03-01] MEDS: LIDOCAINE HCL 2% GEL UROJET 10 ML PKG MUCOUS MEM (11:20)
--- NOTE | 2024-03-01 11:28 | W.PM.PROC2 ---
Procedure Note - Detailed Date of Procedure 03/01/24 Pre-op Diagnosis right ureteral calculus 5-6 mm Post-op Diagnosis Same Procedure Performed Cystoscopy, right retrograde pyelogram, right ureteroscopy with stone extraction, stent placement 4.8 South African contour Surgeon Judah Walters MD Anesthesia General Description of Procedure Patient is taken the operative suite correctly identified. Once anesthesia was obtained was placed in dorsal lithotomy position and prepped and draped usual sterile fashion. Twenty-two South African scope was inserted the bladder. There were no tumors noted. The right ureteral orifice was cannulated with a guidewire. Dilated with an 8/10 dilator. Rigid ureteral scope was then inserted. Stone was visualized. Using escape basket it was retrieved and sent for analysis. Pyelogram was then performed confirm placement of the stent. 4.8 South African contour stent was then placed with the proximal end coiled in the renal pelvis and the distal in the bladder. Bladder was drained. 2% viscous lidocaine was inserted into the urethra patient is taken recovery stable condition. Stent can be removed in a week or 2 This completes dictation. Please send a copy of op note to my office. Estimated Blood Loss 0 Drains Yes Packing No Pathology Yes Complications No immediate complications Condition Stable Disposition PACU
[2024-03-01 11:41] LABS: Glucose Point of Care 120 mg/dl (65-105)
[2024-03-01] MEDS: fentaNYL CITRATE INJ (*CRX) 100 MCG/2 ML VIAL 25 MCG IV PUSH ×2 (11:53→12:05)
[2024-03-01] MEDS: oxyCODONE HCL (*CRX) 5 MG TAB IR PO (13:30)
== END 2024-03-01 14:00 | disposition home or self-care (01) ==
PROVIDERS: PCP Emergency Medicine; Visit Provider Urology
PROC: (CPT 52352; principal; 2024-03-01 10:15)
DX: N20.1 Calculus of ureter (principal); J44.9 Chronic obstructive pulmonary disease, unspecified; I10 Essential (primary) hypertension; E10.9 Type 1 diabetes mellitus without complications; E78.2 Mixed hyperlipidemia; G47.33 Obstructive sleep apnea (adult) (pediatric); M15.9 Polyosteoarthritis, unspecified; Z87.891 Personal history of nicotine dependence; F12.90 Cannabis use, unspecified, uncomplicated; E66.9 Obesity, unspecified; Z68.37 Body mass index [BMI] 37.0-37.9, adult; Z79.51 Long term (current) use of inhaled steroids; Z79.84 Long term (current) use of oral hypoglycemic drugs
CPT/HCPCS: 52332; 52352; 74176; 74420; 82365; 82948; 88300; 93005; A9270; C1769; C2617; J0690; J1596; J2405; J2704; J3010; J7120; Q9966

== ENCOUNTER 2024-03-29 07:08 | Outpatient (CLI) | payer OTHER, SELFPAY ==
[2024-03-29 08:24] LABS: Alanine Aminotransferase 15 U/L (6-50); Albumin Level 3.8 g/dL (3.5-5.1); Alkaline Phosphatase 101 U/L (38-126); Anion Gap 8 mmol/L (4-12); Aspartate Amino Transferase 22 U/L (17-59); Bilirubin,Total 1.2 mg/dL (0.2-1.3); Blood Urea Nitrogen 21 mg/dL (9-20); Calcium 8.5 mg/dL (8.4-10.2); Carbon Dioxide 30 mmol/L (22-30); Chloride 102 mmol/L (98-107); Cholesterol 131 mg/dL (0-200); Estimated Glomerular Filt Rate > 60; Glucose 91 mg/dL (65-110); HDL Direct 36 mg/dL; Potassium 3.9 mmol/L (3.4-5.0); Sodium 140 mmol/L (137-145); Triglycerides 84 mg/dL (<150)
[2024-03-29 08:35] LABS: LDL Cholesterol Direct 75 mg/dL
[2024-03-29 09:04] LABS: Hemoglobin A1C 5.8 % (<5.7)
== END 2024-03-29 07:09 | disposition home or self-care (01) ==
LOC: ANHLAB 07:10
PROVIDERS: PCP Emergency Medicine; Visit Provider Emergency Medicine
DX: E11.9 Type 2 diabetes mellitus without complications (principal); E78.5 Hyperlipidemia, unspecified
CPT/HCPCS: 36415; 80053; 80061; 83036

== ENCOUNTER 2024-04-15 00:56 | Day surgery (SDC) | payer OTHER, SELFPAY ==
[2024-04-13 13:58] VITALS: BMI 37.3
--- NOTE | 2024-04-15 07:03 | ECHO_ITS ---
Patient Info Name: Sundeep Orellana Age: 68 years : 1955 Gender: Male Ht: 72 in Wt: 275 lbs BSA: 2.56 m2 HR: 72 bpm BP: 210 / 91 mmHg Technical Quality: Good Exam Date: 04/15/2024 7:41 AM Exam Location: Echo Lab Patient Status: Outpatient Admit Date: 04/15/2024 Staff Ordering Physician: Orlando Ivy DO Manager Risk: Skye Beck RDCS Attending Provider: Orlando Ivy DO Referring Physician: Biju CONNOLLY; Exam Type: CA echo transesophageal Study Info Indications - a-flutter Complete two-dimensional, color flow and Doppler transesophageal study is performed. Procedure Details Risks/benefits/alternative to MOSHE discuss with patient and he is agreeable to procedure. Monitored electrocardiographically, vitals, pulse ox. HR 50's on average in atrial flutter, BP 180's SBP, pulse ox >95%. Patient given benzocaine spray x 2 to posterior oropharynx. Patient sedated as per anesthesiology. MOSHE probe advanced into esophagus without incident. Multiple images obtained. Agitated saline administered. MOSHE probe withdrawn and no blood noted on probe tip. Patient tolerated procedure with no complications. Summary 1. Transesophageal echocardiogram. 2. Left ventricular systolic function is normal with an ejection fraction of 60-65% by visual estimation. 3. Left ventricular chamber dimension is normal. 4. There is moderate concentric increased left ventricular wall thickness. 5. The left ventricular diastolic function is indeterminate. 6. Left atrial chamber dimension is mildly enlarged. 7. There is mild mitral valve regurgitation. Left Ventricle Left ventricular systolic function is normal with an ejection fraction of 60-65% by visual estimation. Left ventricular chamber dimension is normal. There is moderate concentric increased left ventricular wall thickness. The left ventricular diastolic function is indeterminate. Right Ventricle Right ventricular chamber dimension is normal. Right ventricular systolic function is normal. Left Atria Left atrial chamber dimension is mildly enlarged. Right Atria Right atrial chamber dimension is normal. Atrial Septum Agitated saline injection opacified right side cardiac chambers without shunt to left side cardiac chambers. Intact interatrial septum visualized by 2D, color flow and agitated saline imaging. Atrial Appendage There is no thrombus visualized in the left atrial appendage. Aortic Valve The aortic valve is trileaflet. There is no aortic valve stenosis. There is no aortic valve regurgitation. Pulmonic Valve There is no pulmonic regurgitation. Mitral Valve There is no mitral valve stenosis. There is mild mitral valve regurgitation. Tricuspid Valve There is no tricuspid valve regurgitation. Pericardium/Pleural There is no pericardial effusion. Inferior Vena Cava Inferior vena cava is not well visualized. Aorta The aortic root size at the sinus of Valsalva is normal. Report Signatures
--- NOTE | 2024-04-15 07:09 | ECG_ITS ---
Test Date: 2024-04-15 07:12:20 Measurements Intervals Vickery Rate: 54 P: 0 MT: 0 QRS: -63 QRSD: 131 T: 65 QT: 487 QTc: 462 Interpretive Statements ATRIAL FLUTTER WITH SLOW VENTRICULAR RESPONSE INTRAVENTRICULAR CONDUCTION DELAY BORDERLINE R WAVE PROGRESSION, ANTERIOR LEADS ABNORMAL ECG No previous ECG available for comparison Electronically Signed On 04-15-2024 07:29:33 CDT by Orlando Ivy D.O.
--- NOTE | 2024-04-15 07:10 | ECG_ITS ---
Test Date: 2024-04-15 09:24:14 Measurements Intervals Purcell Rate: 63 P: 70 WA: 224 QRS: -64 QRSD: 129 T: 57 QT: 442 QTc: 456 Interpretive Statements SINUS RHYTHM WITH FIRST DEGREE AV BLOCK LEFT ANTERIOR FASCICULAR BLOCK BASELINE ARTIFACT- I, II, III, AVR, AVL, AVF, V3-V6 ABNORMAL ECG Compared to ECG 04/15/2024 07:12:20 SINUS RHYTHM NOW PRESENT Electronically Signed On 04-15-2024 09:32:10 CDT by Orlando Ivy D.O.
[2024-04-15 07:15] VITALS: BP 210/91; PULSE 60; RESP 19; TEMP 37.1; O2SAT 98; BMI 82.2
[2024-04-15 07:45] LABS: Anion Gap 6 mmol/L (4-12); Blood Urea Nitrogen 22 mg/dL (9-20); Calcium 8.6 mg/dL (8.4-10.2); Carbon Dioxide 33 mmol/L (22-30); Chloride 102 mmol/L (98-107); Estimated CRCL calculation 155 ml/min; Estimated Glomerular Filt Rate > 60; Glucose 104 mg/dL (65-110); Magnesium 1.7 mg/dL (1.6-2.3); Sodium 141 mmol/L (137-145)
--- NOTE | 2024-04-15 08:59 | WPDANESEPPF ---
Anes - Initial Pre Proc Eval Procedure: Operation Date: 04/15/24 08:00 Proposed Procedures p Trans Esophageal Echo - Orlando Ivy DO s Electrical Cardioversion - Orlando Ivy DO Date/Time: 04/15/24 08:59 Surgeon: Orlando Ivy DO Pre Op Diagnosis: unspecified a-flutter Patient Data Age: 68 Gender: M Height: 1.83 m Weight: 275 kg Last Vital Signs Temp 37.1 C 04/15/24 07:15 Pulse 60 04/15/24 07:15 Resp 19 04/15/24 07:15 BP 210/91 H 04/15/24 07:15 Pulse Ox 98 04/15/24 07:15 O2 Del Method Nasal Cannula 04/15/24 07:15 O2 Flow Rate 2 04/15/24 07:15 Allergies Allergy/AdvReac Type Severity Reaction Status Date / Time No Known Allergies Allergy Verified 04/15/24 07:12 Home Medications Medication Instructions Recorded Confirmed Type diltiazem HCl 120 mg 120 mg PO DAILY #30 tabs 03/10/24 04/13/24 Rx tablet,extended release 24 hr flecainide 100 mg tablet 100 mg PO Q12H #60 tabs 03/10/24 04/13/24 Rx rivaroxaban 20 mg tablet (Xarelto) 20 mg PO QPM #30 tabs 03/10/24 04/13/24 Rx budesonide 160 mcg-glycopyr 9 2 inh inhalation QAM AND QPM #10.7 03/18/24 04/07/24 Rx mcg-formot 4.8 mcg/actuation HFA grams inhaler (Breztri Aerosphere) albuterol sulfate 2.5 mg/3 mL 2.5 mg inhalation QID PRN 04/13/24 04/13/24 History (0.083 %) solution for nebulization Shortness Of Breath Or Wheezing albuterol sulfate 90 mcg/actuation 2 puff inhalation Q4-6H PRN 04/13/24 04/13/24 History aerosol inhaler Shortness Of Breath Or Wheezing furosemide 20 mg tablet 20 mg PO DAILY 04/13/24 04/13/24 History losartan 100 mg tablet 100 mg PO DAILY 04/13/24 04/13/24 History metformin 1,000 mg tablet 1,000 mg PO BID 04/13/24 04/13/24 History potassium chloride 10 mEq 10 meq PO DAILY 04/13/24 04/13/24 History tablet,extended release(part/cryst) Laboratory Tests 04/15/24 07:24 Sodium 141 mmol/L (137-145) Potassium 4.0 mmol/L (3.4-5.0) Chloride 102 mmol/L (98-107) Carbon Dioxide 33 H mmol/L (22-30) Anion Gap 6 mmol/L (4-12) BUN 22 H mg/dL (9-20) Creatinine 0.90 mg/dL (0.7-1.3) Estim Creat Clear Calc 155 ml/min Estimated GFR > 60 (59 - ) Glucose 104 mg/dL (65-110) Calcium 8.6 mg/dL (8.4-10.2) Magnesium 1.7 mg/dL (1.6-2.3) Patient hx anesthesia problems: none Family hx anesthesia problems: none Results Review: All pre-operative results and documents have been reviewed as part of the pre-operative evaluation. [facility] Past Medical History Medical History Acute pain of right knee Arthritis of foot, degenerative Bilateral cellulitis of lower leg COPD (chronic obstructive pulmonary disease) COPD (chronic obstructive pulmonary disease) Diabetes mellitus Dyspnea on exertion Edema of both legs Epigastric hernia Hallux valgus, acquired, bilateral History of tobacco abuse Hyperglycemia due to type 1 diabetes mellitus Hypertension Hypokalemia Incisional hernia, without obstruction or gangrene Lung nodules Marijuana smoker Mixed hyperlipidemia PEACE (obstructive sleep apnea) Pes planus of both feet Primary generalized (osteo)arthritis Primary osteoarthritis of right knee Severe arterial insufficiency of lower extremity Sleep-disordered breathing Umbilical hernia without obstruction and without gangrene Surgical History Surgical History H/O hernia repair History of cataract surgery Family History Family History Mother Family history of congestive heart failure Hypertension Cerebrovascular accident Sibling Diabetes mellitus Social History Social History Smoking packs per day: 1.5 Smoking cigarettes per day: 30.0 Years smoked: 30 Smoking pack-years: 45.00 Smoking status: Former smoker
[2024-04-15 09:32] VITALS: BP 145/81; PULSE 55; RESP 19; O2SAT 99
[2024-04-15 09:47] VITALS: BP 164/81; PULSE 53; RESP 19; O2SAT 98
[2024-04-15 10:02] VITALS: BP 165/77; PULSE 54; RESP 15; O2SAT 97
--- NOTE | 2024-04-15 10:12 | P.PCNCVR_ITS ---
Cardioversion Cardioversion Date of procedure: 04/15/24 Procedure: DC cardioversion Pre-op diagnosis: Atrial flutter Post-op diagnosis: Same Indications: Symptomatic atrial flutter Description of procedure: Risks/benefits/alternative to DC cardioversion discuss with patient and he gave informed consent. DC pads placed on anterior and posterior chest. MOSHE was performed which showed no left atrial appendage thrombus. Patient was sedated for MOSHE by anesthesiology. Immediately after MOSHE, patient was cardioverted first with 100 J biphasic energy which was unsuccessful remaining in atrial flutter at 50 bpm. A second attempt at 200 J cardioverted patient to sinus bradycardia at 50's bpm. Patient tolerated procedure well with no complications. Sedation: As per anesthesiology Conclusion: 1. Successful DC cardioversion from atrial flutter to sinus rhythm. [facility] [place] for Cardioversion: Cardioversion
[2024-04-15 10:17] VITALS: BP 171/80; PULSE 57; RESP 15; O2SAT 98
== END 2024-04-15 10:44 | disposition home or self-care (01) ==
PROVIDERS: PCP Emergency Medicine; Visit Provider Internal Medicine Cardiovascular Disease
PROC: (CPT 93312; principal; 2024-04-15 08:00)
PROC: 5A2204Z Restoration of Cardiac Rhythm, Single (ICD-10-PCS; 2024-04-15 08:00)
DX: I48.92 Unspecified atrial flutter (principal); I45.89 Other specified conduction disorders; I44.4 Left anterior fascicular block; R94.31 Abnormal electrocardiogram [ECG] [EKG]; I10 Essential (primary) hypertension; E78.2 Mixed hyperlipidemia; E11.9 Type 2 diabetes mellitus without complications; J44.9 Chronic obstructive pulmonary disease, unspecified; G47.33 Obstructive sleep apnea (adult) (pediatric); E87.6 Hypokalemia; F12.90 Cannabis use, unspecified, uncomplicated; E66.01 Morbid (severe) obesity due to excess calories; Z68.37 Body mass index [BMI] 37.0-37.9, adult; Z79.51 Long term (current) use of inhaled steroids; Z79.84 Long term (current) use of oral hypoglycemic drugs; Z79.01 Long term (current) use of anticoagulants; Z99.89 Dependence on other enabling machines and devices; Z98.890 Other specified postprocedural states; Z87.891 Personal history of nicotine dependence; Z82.49 Family history of ischemic heart disease and other diseases of the circulatory system
CPT/HCPCS: 36415; 80048; 83735; 92960; 93005; 93312; 93320; 93325; J0461; J2704; J7040

== ENCOUNTER 2024-07-16 06:59 | Outpatient (CLI) | payer OTHER, SELFPAY ==
[2024-07-16 07:27] LABS: Anion Gap 4 mmol/L (4-12); Blood Urea Nitrogen 18 mg/dL (9-20); Calcium 8.3 mg/dL (8.4-10.2); Carbon Dioxide 38 mmol/L (22-30); Chloride 95 mmol/L (98-107); Estimated Glomerular Filt Rate > 60; Glucose 100 mg/dL (65-110); Potassium 3.8 mmol/L (3.4-5.0); Sodium 137 mmol/L (137-145)
[2024-07-16 07:36] LABS: Add Urine Microscopic? YES; Appearance Urine Clear (Clear); Bacteria Urine None Seen /hpf; Bilirubin Urine Negative (Negative); Blood Urine Negative (Negative); Color Urine Yellow (Yellow); Glucose Urine UA Negative (Negative); Ketones Urine Negative (Negative); Leukocyte Esterase Ur Negative LEU/UL (Negative); Nitrate Urine Negative (Negative); Protein Urine 1+ mg/dL (Negative); RBC Urine 0-2 /hpf (0-2); Specific Grav Ur 1.017 (1.001-1.035); Squamous Epithelial Cell Urine None Seen /hpf (Few); WBC Urine 0-5 /hpf (0-3); pH Urine >=9.0 (5.0-9.0)
[2024-07-16 08:27] LABS: Microalbumin Urine Random 25.2 mg/L (0-16.7)
[2024-07-16 08:28] LABS: Creatinine Urine 113.1 mg/dL; MALB Creatinine Ratio 22.3 mg/g (0-30)
[2024-07-16 08:32] LABS: Hemoglobin A1C 6.6 % (<5.7)
== END 2024-07-16 07:00 | disposition home or self-care (01) ==
PROVIDERS: PCP Emergency Medicine; Visit Provider Family Medicine
DX: E11.9 Type 2 diabetes mellitus without complications (principal)
CPT/HCPCS: 36415; 80048; 81001; 82043; 83036

== ENCOUNTER 2024-07-25 09:26 | Outpatient (CLI) | payer OTHER, SELFPAY ==
--- NOTE | ~2024-07-25 | CT_ITS ---
CT Scan of the Chest without Contrast: Clinical Indication: Lung cancer screening, nicotine dependence Technique: Contiguous sections were acquired throughout the chest without intravenous contrast. Dose reduction technique was used on this scan by utilizing automated exposure control and iterative recon struction technique. The dose-length product (DLP) was 458.38 mGy-cm. COMPARISON: 07/20/2023 Findings: There is no evidence of any significant mediastinal, hilar or axillary lymphadenopathy. The mediastin al soft tissues appear normal. There is no evidence of pleural or pericardial effusion. There is bibasilar discoid/linear atelectasis or scarring. No discrete pulmonary nodule evident. Images through the upper abdomen reveal no abnormalities. Impression: Lung RADS 2: Benign appearance. 12 month follow-up screening CT advised. Reviewed, dictated and finalized at [facility]. Impression: Lung RADS 2: Benign appearance. 12 month follow-up screening CT advised.
== END 2024-07-25 09:27 | disposition home or self-care (01) ==
PROVIDERS: PCP Family Medicine; Visit Provider Nurse Practitioner Family
DX: Z12.2 Encounter for screening for malignant neoplasm of respiratory organs (principal); Z87.891 Personal history of nicotine dependence
CPT/HCPCS: 71271

== ENCOUNTER 2024-12-16 07:18 | Outpatient (CLI) | payer OTHER, SELFPAY ==
--- OUTSIDE RECORDS SUMMARY | 2024-12-16 07:23 | XMS_ITS | Continuity of Care Document ---
Author Organization [facility] Address [address] [place] [address] Phone Care Team Providers Care Loss Prevention Operations Manager Name Role Phone Denys Edwards MD, MD Unavailable Unavailable Procedures Procedure Date CATARACT SURG W/IOL, 1 STAGE OFFICE/OUTPATIENT VISIT, [facility] OPHTHALMIC BIOMETRY SPECIAL EYE EXAM, INITIAL SPECIAL EYE EXAM, INITIAL Advance Directives Directive Yes / No Effective Date File Name No Information Encounters Encounter Description Practice Location Reason(s) For Visit Diagnoses Date Provider Providers Copied on Encounter Ophthalmology [facility]ly [facility], [facility], [address], [place], [place], [id number], [place] tel:[phone] [facility] No Information 3 Jerry Mcfarlane. [address], [address], [place], [place], [address] , [place]. [phone] Referring Provider: Denys Edwards MD P, [address], [place], [place], [address]. tel:[phone] OFFICE/OUTPA TIENT VISIT, [facility], [address], [place], [place], [id number], [place] tel:[phone] [facility] No Information 3 Jerry Mcfarlane. [address], [place], [place], [address] , [place]. [phone] Referring Provider: Denys Edwards MD P, [address], [place], [place], [address]. tel:[phone] Family History Family Member Type Diagnosis Age At Onset No Information Payers Payer name Insurance type Covered green party ID Authoriza ezequiel(s) [employer] [id number] Social History Type Description Quantity Date Captured Comments Sex Male Smoking Status No Information Chief Complaint And Reason For Visit No Information Plan Of Treatment Date Type Action Status No Information History Of Present Illness Encounter Date Complaint History Of Prese nt Illness No Information Instructions Date Instruction Additional Infor mation No Information Assessments Type Assessment Date No Information
[2024-12-16 08:19] LABS: Basophils Absolute Auto 0.1 K/mm3 (0.0-0.1); Eosinophils Absolute Auto 0.3 K/mm3 (0-0.3); Eosinophils Percent Auto 3.1 % (0-4.4); Hematocrit 39.6 % (42.0-52.0); Hemoglobin 13.3 g/dL (14.0-18.0); Immature Granulocyte Absolute 0.14 K/mm3 (0.00-0.031); Immature Granulocyte Percent A 1.8 % (0-0.5); Lymphocytes Absolute Auto 1.51 K/mm3 (0.9-3.2); Lymphocytes Percent Auto 18.9 % (18.3-44.2); Mean Corpuscular HGB Conc 33.6 g/dl (32-36); Mean Corpuscular Hemoglobin 30.9 pg (26-34); Mean Corpuscular Volume 91.9 fl (80-100); Mean Platelet Volume 10.8 fl (7.4-10.4); Monocytes Absolute Auto 0.7 K/mm3 (0.1-0.6); Monocytes Percent Auto 8.4 % (2.6-8.5); Neutrophils Absolute Auto 5.3 K/mm3 (1.3-6.7); Neutrophils Percent Auto 66.8 % (45.5-73.1); Platelet Count Result 240 k/mm3 (150-375); Red Blood Count 4.31 M/mm3 (4.6-6.20); Red Cell Distribution Width 12.9 % (11.5-14.5)
[2024-12-16 08:30] LABS: Add Urine Microscopic? NO; Appearance Urine Clear (Clear); Bilirubin Urine Negative (Negative); Blood Urine Negative (Negative); Color Urine Yellow (Yellow); Glucose Urine UA Negative (Negative); Ketones Urine Negative (Negative); Leukocyte Esterase Ur Negative LEU/UL (Negative); Nitrate Urine Negative (Negative); Protein Urine Negative (Negative); Specific Grav Ur 1.021 (1.001-1.035)
[2024-12-16 08:39] LABS: Alanine Aminotransferase 17 U/L (6-50); Alkaline Phosphatase 108 U/L (38-126); Anion Gap 10 mmol/L (4-12); Aspartate Amino Transferase 21 U/L (17-59); Bilirubin,Total 1.1 mg/dL (0.2-1.3); Blood Urea Nitrogen 25 mg/dL (9-20); Calcium 8.8 mg/dL (8.4-10.2); Carbon Dioxide 31 mmol/L (22-30); Chloride 98 mmol/L (98-107); Cholesterol 169 mg/dL (0-200); Estimated Glomerular Filt Rate > 60; Glucose 117 mg/dL (65-110); HDL Direct 34 mg/dL; Potassium 3.2 mmol/L (3.4-5.0); Sodium 139 mmol/L (137-145); Triglycerides 139 mg/dL (<150)
[2024-12-16 08:50] LABS: LDL Cholesterol Direct 79 mg/dL
[2024-12-16 09:03] LABS: Hemoglobin A1C 6.4 % (<5.7)
[2024-12-16 09:11] LABS: Prostate Specific Antigen 0.3 ng/mL (< OR = 4.0)
== END 2024-12-16 07:19 | disposition home or self-care (01) ==
PROVIDERS: PCP Family Medicine; Visit Provider Family Medicine
DX: E78.2 Mixed hyperlipidemia (principal); E11.9 Type 2 diabetes mellitus without complications; I10 Essential (primary) hypertension; R09.02 Hypoxemia; Z12.5 Encounter for screening for malignant neoplasm of prostate
CPT/HCPCS: 36415; 80048; 80061; 80076; 81003; 83036; 84153; 85025; G0103

== ENCOUNTER 2025-01-13 09:10 | Outpatient (CLI) | payer OTHER, SELFPAY ==
--- OUTSIDE RECORDS SUMMARY | 2025-01-13 09:17 | XMS_ITS | Continuity of Care Document ---
Author Organization [facility] Address [address] [place] [address] Phone Care Team Providers Care Garment Fitter Name Role Phone Jerry SAM MD, Denys Unavailable Unavailable Procedures Procedure Date CATARACT SURG W/IOL, 1 STAGE OFFICE/OUTPATIENT VISIT, [facility] OPHTHALMIC BIOMETRY OPHTHALMIC BIOMETRY SPECIAL EYE EXAM, INITIAL SPECIAL EYE EXAM, INITIAL Advance Directives Directive Yes / No Effective Date File Name No Information Encounters Encounter Description Practice Location Reason(s) For Visit Diagnoses Date Provider Providers Copied on Encounter Ophthalmology [facility], [address], [place], [place], [id number], [place] tel:[phone] [address] [place] [address] No Information 3 Jeryr Mcfarlane. [address], [address], [place], [place], [address] , [place]. [phone] Referring Provider: Denys Cohen, [address], [place], [address] . tel:[phone] OFFICE/OUTPA TIENT VISIT, [facility] Ophthalmology [facility], [address], [place], [place], [address], [place] tel:[phone] No Information 3 Jerry Mcfarlane. [address], [address], [place], [place], [address] , [place]. [phone] Referring Provider: Denys Cohen, [address], [place], [address] . tel:[phone] Family History Family Member Type Diagnosis Age At Onset No Information Payers Payer name Insurance type Covered republican ID Authoriza ezequiel(s) [employer] O [id number] Social History Type Description Quantity Date Captured [...]
[2025-01-13 09:45] LABS: Basophils Absolute Auto 0.1 K/mm3 (0.0-0.1); Basophils Percent Auto 1.1 % (0.2-1.2); Eosinophils Absolute Auto 0.3 K/mm3 (0-0.3); Eosinophils Percent Auto 4.7 % (0-4.4); Hematocrit 41.8 % (42.0-52.0); Hemoglobin 13.1 g/dL (14.0-18.0); Immature Granulocyte Absolute 0.14 K/mm3 (0.00-0.031); Lymphocytes Absolute Auto 1.47 K/mm3 (0.9-3.2); Lymphocytes Percent Auto 20.7 % (18.3-44.2); Mean Corpuscular HGB Conc 31.3 g/dl (32-36); Mean Corpuscular Hemoglobin 30.2 pg (26-34); Mean Corpuscular Volume 96.3 fl (80-100); Monocytes Absolute Auto 0.6 K/mm3 (0.1-0.6); Monocytes Percent Auto 7.8 % (2.6-8.5); Neutrophils Absolute Auto 4.5 K/mm3 (1.3-6.7); Neutrophils Percent Auto 63.7 % (45.5-73.1); Platelet Count Result 204 k/mm3 (150-375); Red Blood Count 4.34 M/mm3 (4.6-6.20); Red Cell Distribution Width 13.3 % (11.5-14.5); White Blood Count 7.1 K/mm3 (4.5-10.0)
[2025-01-13 09:56] LABS: Anion Gap 6 mmol/L (4-12); Blood Urea Nitrogen 25 mg/dL (9-20); Calcium 8.6 mg/dL (8.4-10.2); Carbon Dioxide 37 mmol/L (22-30); Chloride 99 mmol/L (98-107); Estimated Glomerular Filt Rate > 60; Glucose 107 mg/dL (65-110); Magnesium 2.2 mg/dL (1.6-2.3); Potassium 3.5 mmol/L (3.4-5.0); Sodium 142 mmol/L (137-145)
[2025-01-13 10:02] LABS: Iron 61 ug/dL (49-181)
[2025-01-13 10:12] LABS: Percent Iron Saturation 22 % (20-50)
[2025-01-13 11:01] LABS: Folic Acid 14.7 ng/mL (2.76->20)
== END 2025-01-13 09:11 | disposition home or self-care (01) ==
LOC: ANHLAB 09:12
PROVIDERS: PCP Family Medicine; Visit Provider Family Medicine
DX: D64.9 Anemia, unspecified (principal); E87.6 Hypokalemia
CPT/HCPCS: 36415; 80048; 82607; 82728; 82746; 83540; 83550; 83735; 85025

== ENCOUNTER 2025-04-21 00:36 | Day surgery (SDC) | payer OTHER, SELFPAY ==
[2025-04-07 10:45] VITALS: BMI 36.6
--- NOTE | 2025-04-07 11:02 | PC.NURSE ---
Pt aware that last dose of his Xarelto will be on 04/17/25. Verbalizes understanding. Aware that the endoscopist will let him know when to resume it.
--- OUTSIDE RECORDS SUMMARY | 2025-04-21 00:38 | XMS_ITS | Continuity of Care Document ---
Author Organization [facility] Address [address] [place] [address] Phone Care Team Providers Care Taxi Driver Supervisor Name Role Phone Jerry SAM MD, Denys Unavailable Unavailable Procedures Procedure Date CATARACT SURG W/IOL, 1 STAGE OFFICE/OUTPATIENT VISIT, [facility] OPHTHALMIC BIOMETRY OPHTHALMIC BIOMETRY SPECIAL EYE EXAM, INITIAL SPECIAL EYE EXAM, INITIAL Advance Directives Directive Yes / No Effective Date File Name No Information Encounters Encounter Description Practice Location Reason(s) For Visit Diagnoses Date Provider Providers Copied on Encounter Ophthalmology [facility], [address], [place], [place], [address], [place] tel:[phone] [address] [place] [address] No Information 3 Jerry Mcfarlane. [address], [address], [place], [place], [address] , [place]. [phone] Referring Provider: Denys Cohen, [address], [place], [address] . tel:[phone] OFFICE/OUTPA TIENT VISIT, [facility] Ophthalmology [facility], [address], [place], [place], [address], [place] tel:[phone] Information 3 Jerry Mcfarlane. [address], [address], [place], [place], [address] , [place]. [phone] Referring Provider: Denys Cohen, [address], [place], [address] . tel:[phone] Family History Family Member Type Diagnosis Age At Onset No Information Payers Payer name Insurance type Covered democrat ID Authoriza ezequiel(s) [employer] O [id number] Social History Type Description Quantity Date Captured [...]
[2025-04-21 11:15] VITALS: BP 160/87; PULSE 60; RESP 18; TEMP 36.3; O2SAT 93
[2025-04-21] MEDS: LACTATED RINGERS 1,000 ML 150 ML IV CONT (11:24)
--- NOTE | 2025-04-21 11:55 | WPDANESEPPF ---
Anes - Initial Pre Proc Eval Procedure: Operation Date: 04/21/25 12:30 Proposed Procedures p Screening Colonoscopy - Tre Richey MD Date/Time: 04/21/25 11:55 Surgeon: Tre Richey MD Pre Op Diagnosis: Neoplasm screening Patient Data Age: 69 Gender: M Height: 1.83 m Weight: 122.6 kg Last Vital Signs Temp 97.4 F L 04/21/25 11:15 Pulse 60 04/21/25 11:15 Resp 18 04/21/25 11:15 BP 160/87 H 04/21/25 11:15 Pulse Ox 93 04/21/25 11:15 O2 Del Method Room Air 04/21/25 11:15 Allergies Allergy/AdvReac Type Severity Reaction Status Date / Time No Known Allergies Allergy Verified 04/07/25 10:42 Home Medications ?Medication ?Instructions ?Recorded ?Confirmed ?Type Trelegy Ellipta 100 mcg-62.5 1 inh inhalation Q24H #60 ea 07/21/24 04/21/25 Rx mcg-25 mcg powder for inhalation (aflnumskuwz-lcqinfwuj-hstiusun) furosemide 20 mg tablet 20 mg PO DAILY #90 tabs 08/03/24 04/21/25 Rx irbesartan 300 mg tablet 300 mg PO DAILY #90 tabs 08/03/24 04/21/25 Rx duloxetine 60 mg capsule,delayed 60 mg PO DAILY #30 caps 11/07/24 04/21/25 Rx release hydrochlorothiazide 25 mg tablet See Rx Instructions .Route 11/28/24 04/21/25 Rx .COMPLEX #30 tabs albuterol sulfate 2.5 mg/3 mL 2.5 mg (3 mL) inhalation QID PRN 12/19/24 04/07/25 Rx (0.083 %) solution for nebulization Shortness Of Breath Or Wheezing 90 days #1,080 mL albuterol sulfate 90 mcg/actuation 2 puff inhalation Q4-6H PRN 12/19/24 04/07/25 Rx aerosol inhaler Shortness Of Breath Or Wheezing 90 days #25.5 grams mometasone 0.1 % topical cream 1 applic topical DAILY PRN rash 2 12/27/24 04/07/25 Rx weeks #45 grams potassium chloride 10 mEq 20 meq (2 x 10 mEq) PO DAILY #180 12/27/24 04/21/25 Rx tablet,extended release(part/cryst) tabs ammonium lactate 12 % topical cream 1 applic topical BID PRN dry skin 02/06/25 04/07/25 Rx #385 grams rivaroxaban 20 mg tablet (Xarelto) See Rx Instructions .Route 02/20/25 04/21/25 Rx .COMPLEX #30 tabs flecainide 100 mg tablet See Rx Instructions .Route 02/27/25 04/21/25 Rx .COMPLEX #60 tabs metformin 500 mg tablet,extended 500 mg PO BID 04/07/25 04/21/25 History release 24 hr Laboratory Tests 04/21/25 11:25 POC Capillary Glucose 117 H mg/dl (65-105) Patient hx anesthesia problems: none Family hx anesthesia problems: none Results Review: All pre-operative results and documents have been reviewed as part of the pre-operative evaluation. [facility] Past Medical History Medical History (Updated 12/27/24 @ 08:56 by Ankit Pate MD) Depression Severe arterial insufficiency of lower extremity normal PARVEEN on 02/12/2024 with 1.31 on the right and 1.24 on the left. Bradycardia Dyshidrotic eczema feet Chronic seborrheic dermatitis PEACE (obstructive sleep apnea) APAP 5-15 cm water pressure with oxygen at 2 liters/minute Anemia hemoglobin 13.3 with hematocrit 39.6 on 12/16/2024. Hypokalemia potassium low at 3.2 on 12/16/2024. Screening for diabetic retinopathy no diabetic retinopathy on 08/05/2024. Obesity (BMI 30-39.9) BMI 37.0-37.9, adult Controlled diabetes mellitus without complication, without long-term current use of insulin Microalbumin ratio of 22.9 on 07/30/2023. glucose 104 with hemoglobin A1c 5.8 on 04/15/2024. Glucose 100 with hemoglobin A1c 6.6 With urine microalbumin ratio of 22.3 on 07/16/2024. Glucose 117, hemoglobin A1c 6.4, GFR greater than 60 on 12/16/2024. Chronic anxiety Chronic depression Chronic bilateral low back pain without sciatica Bilateral chronic knee pain Arthritis of foot, degenerative Hallux valgus, acquired, bilateral Pes planus of both feet Edema of both legs Umbilical hernia without obstruction and without gangrene Sleep-disordered breathing Primary osteoarthritis of right knee Primary generalized (osteo)arthritis Mixed hyperlipidemia Lung nodules Incisional hernia, without obstruction or gangrene Epigastric hernia Bilateral cellulitis of lower leg Acute pain of right knee Chest pain Positive screening for depression on 2-item Patient Health Questionnaire (PHQ-2) Diabetes mellitus Diabetes mellitus Marijuana smoker History of tobacco abuse Obesity Screening PSA (prostate specific antigen) PSA 0.3 on 12/16/2024. Hyperglycemia SOB (shortness of breath) Tobacco abuse Patient quit smoking 5 years ago. Hypertension Dyspnea on exertion COPD (chronic obstructive pulmonary disease) Screening CT of the chest on 07/25/2024 was negative for suspicious lesions. Surgical History Surgical History H/O hernia repair History of cataract surgery Family History Family History Mother Family history of congestive heart failure Hypertension Cerebrovascular accident Sibling Diabetes mellitus Social History Social History Smoking packs per day: 1.5 Smoking cigarettes per day: 30.0 Years smoked: 30 Smoking pack-years: 45.00 Smoking status: Former smoker Tobacco type: cigarettes Second hand tobacco smoke exposure: Yes (not currently) Smoking end date: 10/12/17 Additional smoking assessment comments: states smoke free since 2019 Alcohol intake: former Drinks per week: 4 Substance use: current Substance use type: other Other substance usage details: THC gummies Last use: daily Current Housing: Decline to Answer Concerned About Future Housing: Decline to Answer Difficulty Paying Gas/Electric Bills: Decline to Answer Difficulty Paying for Meds: Decline to Answer Currently Unemployed: Decline to Answer Education: Decline to Answer Difficulty w/ Childcare or Family Care: Decline to Answer Living arrangements: alone Spiritual care concerns: No Anes - Eval Final PreProcedure Day of Procedure 04/21/25 11:55 Patient weight: obese Heart: regular rate and rhythm Lungs: clear to auscultation Airway: Mallampati scale class III Neurological: alert and oriented Last oral intake: >/= 8 hours ASA classification: IV Emergent: no Anesthetic plan: proceed Anesthesia type and monitoring: general GIVS and standard monitoring Results Review: All pre-operative results and documents have been reviewed as part of the pre-operative evaluation. Informed Consent: The patient's anesthetic plan and its attendant risks and benefits were discussed with the patient/family/POA. Questions were solicited and answers provided to the satisfaction of the patient/family/POA.
--- NOTE | 2025-04-21 12:29 | PM.IMHP ---
H&P: HPI History of Present Illness Date/Time: 04/21/25 12:29 Chief Complaint: History of colon polyps Narrative: The patient has a history of colonic polyps, the last colonoscopy was Review of Systems Review of Systems: All systems reviewed & are unremarkable except as noted in HPI and below PMFSH Past Medical History Medical History (Updated 12/27/24 @ 08:56 by Ankit Pate MD) Depression Severe arterial insufficiency of lower extremity normal PARVEEN on 02/12/2024 with 1.31 on the right and 1.24 on the left. Bradycardia Dyshidrotic eczema feet Chronic seborrheic dermatitis PEACE (obstructive sleep apnea) APAP 5-15 cm water pressure with oxygen at 2 liters/minute Anemia hemoglobin 13.3 with hematocrit 39.6 on 12/16/2024. Hypokalemia potassium low at 3.2 on 12/16/2024. Screening for diabetic retinopathy no diabetic retinopathy on 08/05/2024. Obesity (BMI 30-39.9) BMI 37.0-37.9, adult Controlled diabetes mellitus without complication, without long-term current use of insulin Microalbumin ratio of 22.9 on 07/30/2023. glucose 104 with hemoglobin A1c 5.8 on 04/15/2024. Glucose 100 with hemoglobin A1c 6.6 With urine microalbumin ratio of 22.3 on 07/16/2024. Glucose 117, hemoglobin A1c 6.4, GFR greater than 60 on 12/16/2024. Chronic anxiety Chronic depression Chronic bilateral low back pain without sciatica Bilateral chronic knee pain Arthritis of foot, degenerative Hallux valgus, acquired, bilateral Pes planus of both feet Edema of both legs Umbilical hernia without obstruction and without gangrene Sleep-disordered breathing Primary osteoarthritis of right knee Primary generalized (osteo)arthritis Mixed hyperlipidemia Lung nodules Incisional hernia, without obstruction or gangrene Epigastric hernia Bilateral cellulitis of lower leg Acute pain of right knee Chest pain Positive screening for depression on 2-item Patient Health Questionnaire (PHQ-2) Diabetes mellitus Diabetes mellitus Marijuana smoker History of tobacco abuse Obesity Screening PSA (prostate specific antigen) PSA 0.3 on 12/16/2024. Hyperglycemia SOB (shortness of breath) Tobacco abuse Patient quit smoking 5 years ago. Hypertension Dyspnea on exertion COPD (chronic obstructive pulmonary disease) Screening CT of the chest on 07/25/2024 was negative for suspicious lesions. Surgical History Surgical History H/O hernia repair History of cataract surgery Family History Family History Mother Family history of congestive heart failure Hypertension Cerebrovascular accident Sibling Diabetes mellitus Social History Social History Smoking packs per day: 1.5 Smoking cigarettes per day: 30.0 Years smoked: 30 Smoking pack-years: 45.00 Smoking status: Former smoker Tobacco type: cigarettes Second hand tobacco smoke exposure: Yes (not currently) Smoking end date: 10/12/17 Additional smoking assessment comments: states smoke free since 2019 Alcohol intake: former Drinks per week: 4 Substance use: current Substance use type: other Other substance usage details: THC gummies Last use: daily Current Housing: Decline to Answer Concerned About Future Housing: Decline to Answer Difficulty Paying Gas/Electric Bills: Decline to Answer Difficulty Paying for Meds: Decline to Answer Currently Unemployed: Decline to Answer Education: Decline to Answer Difficulty w/ Childcare or Family Care: Decline to Answer Living arrangements: alone Spiritual care concerns: No Meds Home Medications and Allergies Home Medications ?Medication ?Instructions ?Recorded ?Confirmed ?Type Trelegy Ellipta 100 mcg-62.5 1 inh inhalation Q24H #60 ea 07/21/24 04/21/25 Rx mcg-25 mcg powder for inhalation (rsxwddjffep-ltnadmogg-xmvmijim) furosemide 20 mg tablet 20 mg PO DAILY #90 tabs 08/03/24 04/21/25 Rx irbesartan 300 mg tablet 300 mg PO DAILY #90 tabs 08/03/24 04/21/25 Rx duloxetine 60 mg capsule,delayed 60 mg PO DAILY #30 caps 11/07/24 04/21/25 Rx release hydrochlorothiazide 25 mg tablet See Rx Instructions .Route 11/28/24 04/21/25 Rx .COMPLEX #30 tabs albuterol sulfate 2.5 mg/3 mL 2.5 mg (3 mL) inhalation QID PRN 12/19/24 04/07/25 Rx (0.083 %) solution for nebulization Shortness Of Breath Or Wheezing 90 days #1,080 mL albuterol sulfate 90 mcg/actuation 2 puff inhalation Q4-6H PRN 12/19/24 04/07/25 Rx aerosol inhaler Shortness Of Breath Or Wheezing 90 days #25.5 grams mometasone 0.1 % topical cream 1 applic topical DAILY PRN rash 2 12/27/24 04/07/25 Rx weeks #45 grams potassium chloride 10 mEq 20 meq (2 x 10 mEq) PO DAILY #180 12/27/24 04/21/25 Rx tablet,extended release(part/cryst) tabs ammonium lactate 12 % topical cream 1 applic topical BID PRN dry skin 02/06/25 04/07/25 Rx #385 grams rivaroxaban 20 mg tablet (Xarelto) See Rx Instructions .Route 02/20/25 04/21/25 Rx .COMPLEX #30 tabs flecainide 100 mg tablet See Rx Instructions .Route 02/27/25 04/21/25 Rx .COMPLEX #60 tabs metformin 500 mg tablet,extended 500 mg PO BID 04/07/25 04/21/25 History release 24 hr Allergies Allergy/AdvReac Type Severity Reaction Status Date / Time No Known Allergies Allergy Verified 04/07/25 10:42 Vital Signs Vital Signs - 24 hr 04/21/25 11:15 Temperature 97.4 F L Pulse Rate 60 Respiratory Rate 18 Blood Pressure 160/87 H Pulse Oximetry 93 Oxygen Delivery Room Air Exam Const: General: cooperative and healthy appearing Resp: Effort & Inspection: normal respiratory effort and able to speak in complete sentences Auscultation: clear to auscultation bilaterally Cardio: Rate: regular rate Rhythm: regular rhythm GI: Inspection: normal to inspection GI Palp: No No hepatosplenomegaly present Auscultation: normal bowel sounds Rectal Exam: deferred Skin: General skin exam: normal color Psych: Appearance: grossly normal Mental Status: mental status grossly normal Assessment and Plan Assessment and plan (1) History of colon polyps: Onset Date: 02/13/22 Code(s): Z86.010 - Personal history of colon polyps Status: Acute Assessment and Plan: The patient is deemed a good candidate for the procedure. Consent signed. Will proceed.
[2025-04-21] MEDS: SIMETHICONE ORAL SUSPENSION 20 MG/0.3 ML 30 ML BOTTLE 0.6 ML IRRIGATION (12:39)
--- NOTE | 2025-04-21 12:54 | SUR.OPER ---
Descending colon polyp was not retrieved, MD aware.
--- NOTE | 2025-04-21 12:56 | S_PTH ---
PATIENT: Sundeep Orellana LOC: [facility]#:[id number] AGE/SX: 69/M ROOM: RE04/21/[address]: Tre Richey MD : 1955 BED: DIS: 04/21/2025 SPEC #: [id number] RECD: 04/21/25 14:29 STATUS: TALIB REGarth #: [id number] LIZZY: 04/21/25 12:[address]: Tre Richey DEPT: [facility] Surgical RECD BY: Kinza Collins ENTERED: 04/21/25 14:29 SP TYPE: Surgical OTHR DR: Ankit Pate MD Tissues: A - Colon Polypectomy B - Colon Polypectomy Procedures: Hematoxylin and Eosin Stain Gross and Microscopic Level 4
[2025-04-21 12:58] VITALS: BP 160/87; PULSE 53; RESP 23; O2SAT 93
[2025-04-21 13:08] VITALS: BP 128/73; PULSE 63; RESP 20; O2SAT 93
[2025-04-21 13:18] VITALS: BP 124/70; PULSE 70; RESP 17; O2SAT 97
--- NOTE | 2025-04-21 13:29 | SUR.PHASEII ---
Instructed pt. to resume Zarelto today, 04/21/[address] Richey instructions.
== END 2025-04-21 13:31 | disposition home or self-care (01) ==
PROVIDERS: PCP Family Medicine; Visit Provider Internal Medicine Gastroenterology
PROC: 0DJD8ZZ Inspection of Lower Intestinal Tract, Via Natural or Artificial Opening Endoscopic (ICD-10-PCS; CPT 45378; principal; 2025-04-21 12:30)
DX: Z12.11 Encounter for screening for malignant neoplasm of colon (principal); D12.2 Benign neoplasm of ascending colon; D12.3 Benign neoplasm of transverse colon; K57.30 Diverticulosis of large intestine without perforation or abscess without bleeding; E11.9 Type 2 diabetes mellitus without complications; E78.2 Mixed hyperlipidemia; I10 Essential (primary) hypertension; M17.11 Unilateral primary osteoarthritis, right knee; J44.9 Chronic obstructive pulmonary disease, unspecified; F32.A Depression, unspecified; G47.33 Obstructive sleep apnea (adult) (pediatric); E87.6 Hypokalemia; F41.9 Anxiety disorder, unspecified; R00.1 Bradycardia, unspecified; L21.8 Other seborrheic dermatitis; L30.1 Dyshidrosis [pompholyx]; G89.29 Other chronic pain; M54.50 Low back pain, unspecified; M25.562 Pain in left knee; M25.561 Pain in right knee; E66.9 Obesity, unspecified; Z68.36 Body mass index [BMI] 36.0-36.9, adult; Z79.51 Long term (current) use of inhaled steroids; Z79.01 Long term (current) use of anticoagulants; Z79.84 Long term (current) use of oral hypoglycemic drugs; Z99.89 Dependence on other enabling machines and devices; Z98.890 Other specified postprocedural states; Z87.891 Personal history of nicotine dependence; Z87.19 Personal history of other diseases of the digestive system; Z82.49 Family history of ischemic heart disease and other diseases of the circulatory system
CPT/HCPCS: 45378; 82948; 88305; J2003; J2704; J7120

== ENCOUNTER 2025-07-26 10:14 | Outpatient (CLI) | payer OTHER, SELFPAY ==
--- NOTE | ~2025-07-26 | CT_ITS ---
EXAMINATION:CT lung screening DATE: 07/26/2025 10:31 INDICATION: Personal history of nicotine dependence. TECHNIQUE: Computed tomography (CT) of the chest was performed without intravenous contrast. Automated exposure control and iterative reconstruction technique were employed. The dose-length product (DLP) was 335.48 mGy-cm. COMPARISON: Chest CT 07/25/2024 FINDINGS: There is mild emphysema. There is mild scarring at the lung apices. There is mild atelectasis bilaterally. There is moderate atelectasis in left lower lobe. There are a few scattered nodules in the lungs measuring up to 3 mm. Calcified left lung nodules and calcified left hilar lymph nodes are consistent with old granulomatous disease. No pleural effusion. The heart size is normal. There is a trace pericardial effusion. There are coronary artery calcifications. No pericardial effusion. There is mild bilateral gynecomastia. There are changes of cholecystectomy. Calcifications in the spleen are consistent with old granulomatous disease. There is mild thoracic spondylosis. There is mild chronic anterior wedging of multiple mid thoracic vertebral bodies. IMPRESSION: 1. Lung-RADS category 2: Benign appearance or behavior. Continue annual screening with noncontrast low-dose chest CT in 12 months. Reviewed, dictated and finalized at location E. IMPRESSION: 1. Lung-RADS category 2: Benign appearance or behavior. Continue annual screeni ng with noncontrast low-dose chest CT in 12 months.
== END 2025-07-26 10:15 | disposition home or self-care (01) ==
PROVIDERS: PCP Family Medicine; Visit Provider Nurse Practitioner Family
DX: Z12.2 Encounter for screening for malignant neoplasm of respiratory organs (principal); Z87.891 Personal history of nicotine dependence
CPT/HCPCS: 71271

== ENCOUNTER 2025-08-11 06:46 | Outpatient (CLI) | payer OTHER, SELFPAY ==
[2025-08-11 08:15] LABS: Hematocrit 40.1 % (42.0-52.0); Hemoglobin 13.0 g/dL (14.0-18.0); Immature Granulocyte Percent A 1.7 % (0-0.5); Lymphocytes Absolute Auto 1.40 K/mm3 (0.9-3.2); Mean Corpuscular HGB Conc 32.4 g/dl (32-36); Mean Corpuscular Hemoglobin 30.6 pg (26-34); Mean Corpuscular Volume 94.4 fl (80-100); Nucleated Red Blood Cells Absolute Auto 0.000 K/mm3 (0.0-0.012); Nucleated Red Blood Cells Perc 0.0 % (0.0-0.2); Platelet Count Result 224 k/mm3 (150-375); Red Blood Count 4.25 M/mm3 (4.6-6.20); White Blood Count 7.3 K/mm3 (4.5-10.0)
[2025-08-11 08:22] LABS: Add Urine Microscopic? YES; Appearance Urine Clear (Clear); Glucose Urine UA Negative (Negative); Leukocyte Esterase Ur Negative LEU/UL (Negative); Nitrate Urine Negative (Negative); Specific Grav Ur 1.016 (1.001-1.035)
[2025-08-11 08:25] LABS: Hemoglobin A1C 5.9 % (<5.7)
[2025-08-11 08:40] LABS: Alanine Aminotransferase 12 U/L (6-50); Albumin Level 3.8 g/dL (3.5-5.1); Alkaline Phosphatase 110 U/L (38-126); Anion Gap 5 mmol/L (4-12); Aspartate Amino Transferase 23 U/L (17-59); Bilirubin,Total 1.3 mg/dL (0.2-1.3); Blood Urea Nitrogen 19 mg/dL (9-20); Calcium 8.6 mg/dL (8.4-10.2); Carbon Dioxide 35 mmol/L (22-30); Chloride 96 mmol/L (98-107); Cholesterol 190 mg/dL (0-200); Estimated Glomerular Filt Rate > 60; Glucose 105 mg/dL (65-110); HDL Direct 33 mg/dL; Potassium 3.3 mmol/L (3.4-5.0); Sodium 136 mmol/L (137-145); Total Protein 6.9 g/dL (6.3-8.2); Triglycerides 156 mg/dL (<150)
[2025-08-11 08:42] LABS: Iron 69 ug/dL (49-181)
[2025-08-11 08:55] LABS: Percent Iron Saturation 27 % (20-50)
[2025-08-11 09:16] LABS: Thyroid Stimulating Hormone 2.430 uIU/mL (0.465-4.680)
[2025-08-11 09:23] LABS: Ferritin 96.10 ng/mL (11.1-264)
[2025-08-11 09:39] LABS: Vitamin B12 > 1000.0 pg/mL (239-931)
[2025-08-11 10:53] LABS: MALB Creatinine Ratio 12.3 mg/g (0-30)
== END 2025-08-11 06:47 | disposition home or self-care (01) ==
PROVIDERS: PCP Family Medicine; Visit Provider Family Medicine
DX: E78.2 Mixed hyperlipidemia (principal); E11.9 Type 2 diabetes mellitus without complications; D64.9 Anemia, unspecified; E53.8 Deficiency of other specified B group vitamins
CPT/HCPCS: 36415; 80048; 80061; 80076; 81001; 82043; 82607; 82728; 83036; 83540; 83550; 84443; 85025

== ENCOUNTER 2025-09-01 10:25 | Outpatient (CLI) | payer OTHER, SELFPAY ==
--- OUTSIDE RECORDS SUMMARY | 2013-07-15 01:30 | XMS_ITS | Continuity of Care Document ---
Author Organization [facility] Address [address] [address] [place] [address] Phone Care Team Providers Care Site Safety Representative Name Role Phone Jerry SAM MD, Denys Unavailable Unavailable Procedures Procedure Date CATARACT SURG W/IOL, 1 STAGE OFFICE/OUTPATIENT VISIT, [facility] OPHTHALMIC BIOMETRY OPHTHALMIC BIOMETRY SPECIAL EYE EXAM, INITIAL SPECIAL EYE EXAM, INITIAL Advance Directives Directive Yes / No Effective Date File Name No Information Encounters Encounter Description Practice Location Reason(s) For Visit Diagnoses Date Provider Providers Copied on Encounter Ophthalmology Formerly [facility], [address] [facility] [address], [place], [place], [id number], [place] tel:[phone] [place] [address] No Information 3 Jerry Mcfarlane. [address], [address], [place], [place], [id number] , [place]. [phone] Referring Provider: Denys Cohen, [address], [place], [address] . tel:[phone] OFFICE/OUTPA TIENT VISIT, [facility] Ophthalmology [facility], [address] [facility] [address], [place], [place], [id number], [place] tel:[phone] No Information 3 Jerry Mcfarlane. [address], [address], [place], [place], [address] , [place]. [phone] Referring Provider: Denys Cohen, [address], [place], [address] . tel:[phone] Family History Family Member Type Diagnosis Age At Onset No Information Payers Payer name Insurance type Covered constitution party ID Authoriza ezequiel(s) [employer] O [id number] Social History Type Description Quantity Date Captured Comments Sex Male Smoking Status No Information Chief Complaint And Reason For Visit No Information Reason For Referral Reason For Referral No Information History Of Present Illness Encounter Date Complaint History Of Prese nt Illness No Information Functional Status Date Functional Assessmen t No Information Instructions Date Instruction Additional Infor mation No Information Assessments Type Assessment Date No Information Patient Care Teams Name Effective Dates (start - stop) Status Members No Information
[2025-09-01 12:14] LABS: Anion Gap 7 mmol/L (4-12); Blood Urea Nitrogen 25 mg/dL (9-20); Calcium 8.3 mg/dL (8.4-10.2); Carbon Dioxide 32 mmol/L (22-30); Chloride 98 mmol/L (98-107); Estimated Glomerular Filt Rate > 60; Glucose 99 mg/dL (65-110); Magnesium 2.0 mg/dL (1.6-2.3); Potassium 3.6 mmol/L (3.4-5.0); Sodium 137 mmol/L (137-145)
== END 2025-09-01 10:26 | disposition home or self-care (01) ==
PROVIDERS: PCP Family Medicine; Visit Provider Family Medicine
DX: E87.6 Hypokalemia (principal)
CPT/HCPCS: 36415; 80048; 83735